=== PATIENT | female | born 1980 | race African-American/Black ===

== ENCOUNTER 2017-01-18 08:03 | Observation (INO) ==
--- NOTE | 2017-01-18 09:13 | Emergency Department Note ---
Arrival - Arrival Chief Complaint: Shortness of Breath Stated Complaint: can't breath,trach fell out ED Nursing Triage Note: Patient states that sghe was cleaning her trach and fell asleep. States thqat she was unable to get the inner cannula back in. Staes that she is a little short of breath. Mode of Arrival: Wheelchair Limitations: No Limitations Source: Patient, RN Notes Reviewed - History of Present Illness HPI Narrative: Patient is a 36-year-old black female who presents to the emergency department today due to inability to insert her inner cannula of her trach. Patient was seen in the emergency department by and underwent endoscopy and was found to have tracheitis. Patient has had a cough and some stridor. Onset (ago): day(s) (1) Consistency: constant Severity: mild, moderate Date of Last Menstrual Period: 01/18/17 Allergies/Adverse Reactions: Allergies Allergy/AdvReac Type Severity Reaction Status Date / Time Penicillins Allergy RASH Verified 09/17/15 21:05 Home Medications: Home Medications Medication Instructions Recorded Confirmed Type Ibuprofen 1 tablet PO Q8H PRN 09/20/15 10/08/16 History Ascorbic Acid Tab [Vitamin C Tab] 500 mg PO DAILY 02/23/16 10/08/16 History Echinacea Purpurea Extract 125 mg PO DAILY 02/23/16 10/08/16 History [Echinacea] Ferrous Sulfate Tab [Feosol 325 mg PO BID 02/23/16 10/08/16 History Original Tab] dilTIAZem HCl [Cartia XT] 120 mg PO BID 02/23/16 10/08/16 History Cyclobenzaprine [Flexeril] 10 mg PO TID PRN 03/17/16 10/08/16 History Triamterene/Hydrochlorothiazid 1 each PO DAILY 04/29/16 10/08/16 History [Triamterene-Hctz 37.5-25 mg Tb] predniSONE TAB [PredniSONE] 20 mg PO DAILY #30 tablet 05/14/16 10/08/16 Rx Levofloxacin Tab [Levaquin Tab] 500 mg PO DAILY #10 tablet 08/29/16 10/08/16 Rx Bisacodyl Tab [Dulcolax Tab] 10 mg PO DAILY #30 tablet 09/10/16 10/08/16 Rx Dicyclomine Cap/Tab [Bentyl 10 mg PO TID #30 capsule 09/10/16 10/08/16 Rx Cap/Tab] HYDROcodone/ACETAMIN 5-325 [[place] 1 tablet PO Q6H PRN #12 tablet 10/08/16 Rx 5-325] Review of System - Review of System 12 point system: reviewed and no additional remarkable complaints except as stated Medical,Surgical,& Family Hx - Medical History Cardio: History of: Hypertension HEENT: History of: HEENT Problems (Trach) Rheumatology: History of;: Rheumatological Problems (Prosper's) No history of;: Psoriasis, Sjogrens, Systemic Lupus Erythematosus Respiratory: History of: Bronchitis, Intubation, Respiratory Problems (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) Genitourinary: History of: Kidney Stones Gastrointestinal: History of: GERD Musculoskeletal: History of: Herniated Disk Hematology: History of: Blood Disorders (Eduardo's granuloma) No history of: Blood Transfusion Reaction Other: History of: Miscellaneous Medical Problems (morbid obesity) No history of: Anesthesia Reactions, Anaphylaxis, Cancer, Eczema, HIV, Malignant Hyperthermia, MRSA, Vancomycin-Resistant Enterococci, Skin Problems - Surgical History Cardiac Surgeries: Patient Denies: Cardiac Catheterization Thoracic Surgeries: Patient denies;: Kidney (Renal Surgery), Lithotripsy, Nephrectomy, Organ Transplant, Lobectomy Neurologic Surgeries: Patient denies: Neurologic Surgery HEENT Surgeries: Patient denies: Eye Surgery, Thyroid Surgery, Tonsilectomy & Adenoidectomy Reproductive Surgeries: Surgical HX of;: Tubal Ligation Patient denies;: Cystoscopy, Genitourinary Surgery - Family History Family History: Reports;: Family Diabetes (Mom), Family Heart Disease (Mom) Denies;: Family Anesthesia Reaction, Family Cancer, Family Hypertension, Family Psychiatric Problems, Family Stroke - Social History Smoking Status: Former smoker Exam Vital Signs: Vital Signs Temperature 98.2 F 01/18/17 08:38 Pulse Rate 133 H 01/18/17 08:38 Respiratory Rate 22 01/18/17 08:38 Blood Pressure 150/96 01/18/17 08:38 O2 Sat by Pulse Oximetry 100 01/18/17 08:38 GENERAL: This is a well-nourished well-developed obese black female in no apparent distress. VITAL SIGNS: Reviewed HEENT: Head is atraumatic and normocephalic. Pupils are equal round react to light. Extraocular movements are intact. Oropharynx is benign with moist mucous membranes. NECK: Neck is soft and supple without tenderness. There are no masses. There is no lymphadenopathy. Tracheostomy is present in the midline anteriorly. LUNGS: Minimal amount of stridor is present without retractions. Chest rises symmetrically. There is no chest wall tenderness. CV: Heart is regular rate and rhythm without murmurs rubs or gallops. ABDOMEN: Abdomen is soft, nontender to palpation. There are no abdominal abnormal masses palpated. There is no organomegaly. Bowel sounds are present and active. SKIN: Skin is warm and dry. No rash. EXTREMITIES: Patient has full range of motion without tenderness. There is no pedal edema. NEUROLOGIC: Awake alert and oriented 4. Cranial nerves II through XII are grossly intact. Motor is 5 over 5 in all extremities bilaterally. Course - Consultations Consultation #1: Discussed with hospitalist. Patient will be admitted to their service. Time: 09:14 Disposition Clinical Impression: Tracheitis, Wegeners granulomatosis Case discussed with: patient Disposition: Still a Patient Condition: Stable
[2017-01-18] MEDS ORDERED: BUDESONIDE 0.25 MG/2 ML NEB RESP TX STA (09:32)
--- NOTE | 2017-01-18 09:51 | Hospitalist History & Physical ---
Assessment and Plan - Time spent with patient Time spent with patient: Greater than 30 minutes (1) Shortness of breath Status: Acute Assessment and plan: Admit, Start on breathing treatments. Discuss with Dr Ambrose for further recommendations. Current Visit: No (2) Tracheitis Status: Acute Assessment and plan: Dr Ramso noted with endoscopy performed in the ED, with inner cannula replacement insertion completed. Patient's breathing has improved, no stridor noted. Will continue to monitor. Current Visit: Yes (3) Wegeners granulomatosis Status: Acute Assessment and plan: Will continue to monitor. Will reconcile home medications. Current Visit: Yes History of Present Illness Chief complaint: shortness of breath, trach cannula dislodged, stridor History of present illness: Ms. Burton is a 36 year old black female presented to ED for c/o removed inner cannula of Trach to clean and fell asleep prior to re-inserting inner cannula, woke up short of breath and unable to re-insert inner cannula. PMHx: hypertension, Trach (3 years ago at [facility]), Prosper's granuloma syndrome), subglottic stenosis. She reports coughing and short of breath and inability to replace inner cannula and was unable to properly self suctioning. Once in the ED, patient was noted coughing and stridor present. Dr Ramos was consulted and he performed endoscopy and noted to have tracheitis and inner cannula was replaced. After discussion with Dr Chavira in ED and Dr Ambrose Hospitalist Services, patient will be admitted for further evaluation and treatment. Home medications to review and reconciliation to follow. Home Medications Medication Instructions Recorded Confirmed Type Ibuprofen 1 tablet PO Q8H PRN 09/20/15 10/08/16 History Ascorbic Acid Tab [Vitamin C Tab] 500 mg PO DAILY 02/23/16 10/08/16 History Echinacea Purpurea Extract 125 mg PO DAILY 02/23/16 10/08/16 History [Echinacea] Ferrous Sulfate Tab [Feosol 325 mg PO BID 02/23/16 10/08/16 History Original Tab] dilTIAZem HCl [Cartia XT] 120 mg PO BID 02/23/16 10/08/16 History Cyclobenzaprine [Flexeril] 10 mg PO TID PRN 03/17/16 10/08/16 History Triamterene/Hydrochlorothiazid 1 each PO DAILY 04/29/16 10/08/16 History [Triamterene-Hctz 37.5-25 mg Tb] predniSONE TAB [PredniSONE] 20 mg PO DAILY #30 tablet 05/14/16 10/08/16 Rx Levofloxacin Tab [Levaquin Tab] 500 mg PO DAILY #10 tablet 08/29/16 10/08/16 Rx Bisacodyl Tab [Dulcolax Tab] 10 mg PO DAILY #30 tablet 09/10/16 10/08/16 Rx Dicyclomine Cap/Tab [Bentyl 10 mg PO TID #30 capsule 09/10/16 10/08/16 Rx Cap/Tab] HYDROcodone/ACETAMIN 5-325 [[place] 1 tablet PO Q6H PRN #12 tablet 10/08/16 Rx 5-325] Allergies Allergy/AdvReac Type Severity Reaction Status Date / Time Penicillins Allergy RASH Verified 09/17/15 21:05 Medical,Surgical,& Family Hx - Medical History Cardio: History of: Hypertension HEENT: History of: HEENT Problems (Trach) Rheumatology: History of;: Rheumatological Problems (Prosper's) No history of;: Psoriasis, Sjogrens, Systemic Lupus Erythematosus Respiratory: History of: Bronchitis, Intubation, Respiratory Problems (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) Genitourinary: History of: Kidney Stones Gastrointestinal: History of: GERD Musculoskeletal: History of: Herniated Disk Hematology: History of: Blood Disorders (Eduardo's granuloma) No history of: Blood Transfusion Reaction Other: History of: Miscellaneous Medical Problems (morbid obesity) No history of: Anesthesia Reactions, Anaphylaxis, Cancer, Eczema, HIV, Malignant Hyperthermia, MRSA, Vancomycin-Resistant Enterococci, Skin Problems - Surgical History Cardiac Surgeries: Patient Denies: Cardiac Catheterization Thoracic Surgeries: Patient denies;: Kidney (Renal Surgery), Lithotripsy, Nephrectomy, Organ Transplant, Lobectomy Neurologic Surgeries: Patient denies: Neurologic Surgery HEENT Surgeries: Patient denies: Eye Surgery, Thyroid Surgery, Tonsilectomy & Adenoidectomy Reproductive Surgeries: Surgical HX of;: Tubal Ligation Patient denies;: Cystoscopy, Genitourinary Surgery - Family History Family History: Reports;: Family Diabetes (Mom), Family Heart Disease (Mom) Denies;: Family Anesthesia Reaction, Family Cancer, Family Hypertension, Family Psychiatric Problems, Family Stroke - Social History Smoking Status: Former smoker Frequency of Alcohol Use: None Type of Drug Use: None Marital Status: Single Lives With:: Children Functional capacity: independent ambulation Review of systems: ROS completed and pertinent positives and negatives in HPI. Exam - Constitutional Vitals: Period Temp Pulse Resp BP Sys/Lemons Pulse Ox Last 24 Hr 98.2 F-98.2 F 126-133 20-22 145-150/94-96 99-100 General appearance: over weight - Head Head exam: Present: normal inspection - Eye Eye exam: Present: EOMI Pupils: Present: ЕЛЕНА - Neck Neck exam: Present: other (Trach intact with inner cannula intact (3year hx of trach place at [facility])) - Cardiovascular Cardiovascular exam: Present: regular rate and rhythm - Extremities Exam Extremities exam: Present: full ROM, edema (left 1+ pedal edema; trace right pedal ) - Neurological Exam Neurological exam: Present: alert, oriented X3, CN II-XII intact - Psychiatric Psychiatric exam: Present: normal affect, normal mood, anxious (constantly suctioning her trach, Discussed with Dr Chavira, order breathing treatment ) - Skin Skin exam: Present: normal color, warm, dry Results - Labs Lab Results: I have reviewed the past 24 hour labs
[2017-01-18] MEDS ORDERED: ONDANSETRON 4 MG/2 ML VIAL IV PRN (10:00)
[2017-01-18] MEDS ORDERED: ACETAMINOPHEN 325 MG TABLET PO PRN (10:00)
[2017-01-18] MEDS ORDERED: CYCLOBENZAPRINE 10 MG TABLET PO PRN (10:49)
[2017-01-18] MEDS: methylPREDNISolone SOD SUC 40 MG/1 ML VIAL IV SCH ×2 (11:40→18:18)
[2017-01-18] MEDS: LEVOFLOXACIN INJ 500 MG in PREMIX 1 EACH IV SCH (11:41)
[2017-01-18] MEDS: SODIUM CHLORIDE 0.9% 1,000 ML IV SCH (11:41)
[2017-01-18] MEDS: DICYCLOMINE 10 MG CAPSULE PO SCH ×2 (16:18→21:34)
[2017-01-18] MEDS: BUDESONIDE 0.25 MG/2 ML NEB RESP TX SCH (19:38)
[2017-01-18] MEDS: DILTIAZEM CD 120 MG CAPSULE PO SCH (21:34)
[2017-01-18] MEDS: ALBUTEROL 2.5 MG/3 ML NEB RESP TX SCH (21:38)
[2017-01-19] MEDS: SODIUM CHLORIDE 0.9% 1,000 ML IV SCH ×3 (00:41→17:51)
[2017-01-19] MEDS: methylPREDNISolone SOD SUC 40 MG/1 ML VIAL IV SCH ×2 (03:10→10:20)
[2017-01-19 05:10] LABS: Basophils % 0.1 % (0.0-0.8); Hemoglobin 10.4 GM/DL (12.0-16.0); Immature Granulocytes % 1.1 %; Immature Granulocytes Absolute 0.17 #; Lymphocytes # 0.6 10*3/uL (1.4-4.0); Lymphocytes % 3.8 % (21.3-54.2); Mean Corpuscular HGB Conc 30.6 GM/DL (32-36); Mean Corpuscular Hemoglobin 25 PG (27-34); Mean Corpuscular Volume 82.5 FL (87-102); Mean Platelet Volume 9.7 FL (9.6-12.0); Monocytes # 0.4 10*3/uL (0.11-0.8); Monocytes % 2.3 % (1.7-12.7); Neutrophils # 14.7 10*3/uL (1.4-7.4); Neutrophils % 92.7 % (38.7-73.9); Platelet Count 340 T/CUMM (130-400); Red Blood Count 4.12 MC/CUMM (3.8-5.5); Red Cell Distribution Width 15.6 % (9.3-17.3); White Blood Count 15.8 T/CUMM (4-12)
[2017-01-19 05:47] LABS: Lymphocytes 3 % (20-55); Platelet Estimate Normal; Segmented Neutrophils 96 % (50-85); Total Cells Counted 100
[2017-01-19 05:56] LABS: Calcium 8.9 MG/DL (8.5-10.1); Osmolality,Calculated 275.7 MOS/KG (273-304); Potassium 4.3 MMOL/L (3.5-5.1)
[2017-01-19] MEDS: BUDESONIDE 0.25 MG/2 ML NEB RESP TX SCH (07:27)
[2017-01-19] MEDS: ALBUTEROL 2.5 MG/3 ML NEB RESP TX SCH ×2 (07:29→14:40)
[2017-01-19] MEDS: DICYCLOMINE 10 MG CAPSULE PO SCH ×2 (08:27→15:07)
[2017-01-19] MEDS: DILTIAZEM CD 120 MG CAPSULE PO SCH (08:27)
[2017-01-19] MEDS: LEVOFLOXACIN INJ 500 MG in PREMIX 1 EACH IV SCH (10:21)
--- NOTE | 2017-01-19 15:31 | Discharge Summary ---
Hospital Course - Hospital Course Hospital Course: The patient was admitted to the hospital with tracheitis and difficulty breathing. Dr. Ramos saw her in the emergency room and was able to replace her tracheostomy. He did endoscopy at that time which revealed inflammation in the trachea. The patient was given IV steroids and IV antibiotic during hospital stay. She has less secretions now and is ready for discharge home on oral antibiotic and oral steroids. On the date of discharge, chest is clear with minimal upper airway congestion. The patient was screened for tobacco use and is a non-smoker. The patient was given 4 minutes tobacco avoidance education. 32 minutes discharge time was required for [id number] evaluation, coordination of care with case planner and charge nurse as well as education of patient and document preparation. - Time spent with patient Time with patient DS: Greater than 30 minutes Diagnosis - Discharge Diagnosis (1) Acute tracheitis Status: Acute (2) Wegeners granulomatosis Status: Chronic (3) Respiratory distress Status: Resolved Discharge Plan - Discharge Data Disposition: Disch To Home/Self Care Condition at Discharge: Stable Discharge Diet: advance to your usual diet Activity: resume usual activities as tolerated - Discharge Medications New Ciprofloxacin Tab [Cipro Tab] 500 mg PO BID #14 tablet Continue Ibuprofen 1 tablet PO Q8H PRN PRN Reason: Pain dilTIAZem HCl [Cartia XT] 120 mg PO BID Ferrous Sulfate Tab [Feosol Original Tab] 325 mg PO BID Ascorbic Acid Tab [Vitamin C Tab] 500 mg PO DAILY Cyclobenzaprine [Flexeril] 10 mg PO TID Triamterene/Hydrochlorothiazid [Triamterene-Hctz 37.5-25 mg Tb] 1 each PO DAILY predniSONE TAB [PredniSONE] 20 mg PO DAILY #30 tablet Dicyclomine Cap/Tab [Bentyl Cap/Tab] 10 mg PO TID #30 capsule Bisacodyl Tab [Dulcolax Tab] 10 mg PO DAILY PRN PRN Reason: Constipation - Follow Up or Referral - Forms/Instructions Exam - Constitutional Vitals: Period Temp Pulse Resp BP Sys/Lemons Pulse Ox Last 24 Hr 96.3 F-98.0 F 76-126 18-22 141-158/86-109 97-100 Discharge Results Labs on day of discharge: Labs from last 24 hours 01/19/17 01/19/17 04:39 04:39 WBC 15.8 H RBC 4.12 Hgb 10.4 L Hct 34.0 L MCV 82.5 L MCH 25 L MCHC 30.6 L RDW 15.6 Plt Count 340 MPV 9.7 Neut % (Auto) 92.7 H Lymph % (Auto) 3.8 L [place] % (Auto) 2.3 Eos % (Auto) 0.0 Baso % (Auto) 0.1 Neut # (Auto) 14.7 H Lymph # (Auto) 0.6 L [place] # (Auto) 0.4 Eos # (Auto) 0.0 Baso # (Auto) 0.0 Total Counted 100 Immature Gran % 1.1 Nucleated RBC % 0.0 Immature Gran # 0.17 Segmented Neutrophils 96 H Lymphocytes 3 L Monocytes 1 L Nucleated RBCs # 0.00 Platelet Estimate Normal Immature Plt Fraction 0.0 Sodium 138 Potassium 4.3 Chloride 101 Carbon Dioxide 30 Anion Gap 11.3 BUN 13 Creatinine 0.80 GFR Calculation 153 BUN/Creatinine Ratio 16.00 Glucose 110 H Calculated Osmolality 275.7 Calcium 8.9 DS: Provider Date of admission: 01/18/17 09:47 Primary care physician: . No PCP Attending physician on admission: Dixon Ambrose MD Consults: 01/18/17 16:56 Consult to Pastoral Services [CONS] Routine Comment: Pastoral Screen: Request Change Lead Visit Pastoral Screen Source of Request: Patient Discharging clinician: Dixon Ambrose MD
[2017-01-19 16:25] VITALS: BP 145/87
== END 2017-01-19 17:55 | disposition home or self-care (01) ==
LOC: N.ED 08:03 → N.EDINP 08:03 → N.3E 10:43
PROVIDERS: ADMIT Internal Medicine; ATTEND Internal Medicine

== ENCOUNTER 2017-04-19 08:07 | Inpatient (IN) ==
[2017-04-19] MEDS ORDERED: methylPREDNISolone SOD SUC 125 MG/2 ML VIAL IV STA (08:15)
[2017-04-19] MEDS ORDERED: hydrALAZINE 20 MG/1 ML VIAL IV STA (08:15)
[2017-04-19] MEDS ORDERED: ALBUTEROL 2.5 MG/3 ML NEB RESP TX SCH (08:30)
[2017-04-19] MEDS ORDERED: methylPREDNISolone SOD SUC 125 MG/2 ML VIAL ONE (08:40)
[2017-04-19] MEDS ORDERED: hydrALAZINE 20 MG/1 ML VIAL ONE (08:40)
[2017-04-19 08:59] LABS: ABG Base Excess 0.7 MMOL/L (-2.5-2.5); ABG HCO3 25.1 MMOL/L (20-26); ABG Oxygen Saturation 99.8 % (95-100); ABG PCO2 41.2 MM HG (35-48); ABG TCO2 23.2 MMOL/L (23-27)
[2017-04-19 09:12] LABS: Basophils % 0.2 % (0.0-0.8); Eosinophils % 0.2 % (0.00-10.9); Hematocrit 33.1 VOL% (35.7-47.0); Hemoglobin 9.9 GM/DL (12.0-16.0); Immature Granulocytes % 0.7 %; Immature Granulocytes Absolute 0.13 #; Lymphocytes # 1.6 10*3/uL (1.4-4.0); Lymphocytes % 8.7 % (21.3-54.2); Mean Corpuscular HGB Conc 29.9 GM/DL (32-36); Mean Corpuscular Hemoglobin 23 PG (27-34); Mean Corpuscular Volume 76.4 FL (87-102); Mean Platelet Volume 9.8 FL (9.6-12.0); Monocytes # 1.1 10*3/uL (0.11-0.8); NRBC # 0.04 10*3/uL; Neutrophils # 15.1 10*3/uL (1.4-7.4); Neutrophils % 84.2 % (38.7-73.9); Platelet Count 348 T/CUMM (130-400); Red Blood Count 4.33 MC/CUMM (3.8-5.5); Red Cell Distribution Width 17.6 % (9.3-17.3); White Blood Count 17.9 T/CUMM (4-12)
[2017-04-19 09:54] LABS: Alanine Aminotransferase 29 U/L (13-56); Albumin 3.2 G/DL (3.4-5.0); Alkaline Phosphatase 109 U/L (45-117); Aspartate Amino Transferase 14 U/L (0-37); Bilirubin,Total < 0.39 MG/DL (0.2-1.0); Blood Urea Nitrogen 11 MG/DL (7-18); Calcium 9.2 MG/DL (8.5-10.1); Glucose 133 MG/DL (74-106); Osmolality,Calculated 277.5 MOS/KG (273-304); Potassium 3.4 MMOL/L (3.5-5.1); Sodium 139 MMOL/L (136-145); Total Protein 7.8 G/DL (6.4-8.3)
[2017-04-19] MEDS ORDERED: methylPREDNISolone SOD SUC 40 MG/1 ML VIAL IV SCH (12:00)
[2017-04-19] MEDS ORDERED: ALBUTEROL/IPRATROPIUM 3 ML NEB RESP TX SCH (13:00)
[2017-04-19] MEDS ORDERED: POTASSIUM CHLORIDE 20 MEQ TABLET PO ONE (13:30)
[2017-04-19] MEDS ORDERED: ONDANSETRON 4 MG/2 ML VIAL IV PRN (13:50)
[2017-04-19] MEDS ORDERED: SODIUM CHLORIDE 0.9% 3,950 ML IV ONE (13:50)
[2017-04-19] MEDS: SODIUM CHLORIDE 0.9% 1,000 ML IV SCH (16:02)
[2017-04-19] MEDS: ENOXAPARIN 40 MG/0.4 ML SYRINGE SUBCUT SCH (17:03)
[2017-04-19] MEDS: CYCLOBENZAPRINE 10 MG TABLET PO SCH ×2 (17:56→22:58)
[2017-04-19] MEDS: CEFEPIME 1,000 MG in SODIUM CHLORIDE 0.9% 50 ML IV SCH (18:22)
[2017-04-19 19:19] LABS: Apearance,Urine CLEAR (Clear); Bacteria,Urine Occasional /HPF (Few); Bilirubin,Urine Negative (Negative); Blood, Urine Moderate mg/dL (Negative); Glucose,Urine (UA) Negative (Negative); Ketones,Urine Negative (Negative); Mucus,Urine Occasional /LPF (Occasional); Nitrite,Urine Negative (Negative); Protein,Urine 30 MG/DL; RBC,Urine 8 /HPF (0-4); Squamous Epithelial Cell,Urine Occasional /HPF (0-10); Urine Color Yellow (Yellow); Urine Specific Gravity > 1.060 (1.001-1.035); Urine Urobilinogen < 2.0 EU/DL (0.2-1.0); WBC,Urine 1 /HPF (0-6)
[2017-04-19] MEDS: BUDESONIDE 0.5 MG/2 ML NEB RESP TX SCH (20:02)
[2017-04-19] MEDS: SODIUM CHLORIDE 0.9% 500 ML IV ONE (22:00)
[2017-04-19] MEDS: methylPREDNISolone SOD SUC 40 MG/1 ML VIAL IV SCH (22:56)
[2017-04-19] MEDS: DILTIAZEM CD 120 MG CAPSULE PO SCH (22:57)
[2017-04-19] MEDS: VANCOMYCIN INJ 2,000 MG in SODIUM CHLORIDE 0.9% 500 ML IV SCH (22:58)
[2017-04-20] MEDS: CEFEPIME 1,000 MG in SODIUM CHLORIDE 0.9% 50 ML IV SCH ×2 (03:00→16:02)
[2017-04-20] MEDS: SODIUM CHLORIDE 0.9% 500 ML IV ONE (04:36)
[2017-04-20] MEDS: SODIUM CHLORIDE 0.9% 1,000 ML IV SCH ×3 (04:48→08:38)
[2017-04-20 05:03] LABS: Basophils % 0.1 % (0.0-0.8); Hematocrit 30.7 VOL% (35.7-47.0); Hemoglobin 9.2 GM/DL (12.0-16.0); Immature Granulocytes % 0.9 %; Immature Granulocytes Absolute 0.12 #; Lymphocytes # 0.5 10*3/uL (1.4-4.0); Lymphocytes % 3.9 % (21.3-54.2); Mean Corpuscular Hemoglobin 23 PG (27-34); Mean Corpuscular Volume 76.8 FL (87-102); Mean Platelet Volume 10.6 FL (9.6-12.0); Monocytes # 0.2 10*3/uL (0.11-0.8); Monocytes % 1.7 % (1.7-12.7); NRBC # 0.02 10*3/uL; Neutrophils # 11.9 10*3/uL (1.4-7.4); Neutrophils % 93.4 % (38.7-73.9); Platelet Count 327 T/CUMM (130-400); White Blood Count 12.8 T/CUMM (4-12)
[2017-04-20 05:24] LABS: Giant Platelets Few; Hypochromasia 1+; Lymphocytes 3 % (20-55); Ovalocytes Slight; Platelet Estimate Adequate; Segmented Neutrophils 95 % (50-85); Total Cells Counted 100
[2017-04-20 05:32] LABS: Bilirubin,Total 0.5 MG/DL (0.2-1.0); Osmolality,Calculated 276.5 MOS/KG (273-304); Potassium 4.2 MMOL/L (3.5-5.1); Total Protein 7.3 G/DL (6.4-8.3)
[2017-04-20] MEDS: VANCOMYCIN INJ 2,000 MG in SODIUM CHLORIDE 0.9% 500 ML IV SCH ×2 (05:44→14:07)
[2017-04-20] MEDS: BUDESONIDE 0.5 MG/2 ML NEB RESP TX SCH ×2 (07:51→19:32)
[2017-04-20] MEDS: DILTIAZEM CD 120 MG CAPSULE PO SCH ×2 (08:38→20:25)
[2017-04-20] MEDS: MONTELUKAST 10 MG TABLET PO SCH (08:38)
[2017-04-20] MEDS: PANTOPRAZOLE 40 MG TABLET PO SCH (08:39)
[2017-04-20] MEDS: methylPREDNISolone SOD SUC 40 MG/1 ML VIAL IV SCH ×2 (08:39→20:25)
[2017-04-20] MEDS: CYCLOBENZAPRINE 10 MG TABLET PO SCH ×3 (08:39→20:25)
[2017-04-20] MEDS: ACETAMINOPHEN 325 MG TABLET PO PRN ×2 (09:57→18:25)
[2017-04-20] MEDS ORDERED: FUROSEMIDE 20 MG/2 ML VIAL IV ONE (13:20)
[2017-04-20] MEDS: ENOXAPARIN 40 MG/0.4 ML SYRINGE SUBCUT SCH (14:07)
[2017-04-21] MEDS: VANCOMYCIN INJ 2,000 MG in SODIUM CHLORIDE 0.9% 500 ML IV SCH ×3 (00:21→17:06)
[2017-04-21] MEDS: CEFEPIME 1,000 MG in SODIUM CHLORIDE 0.9% 50 ML IV SCH ×2 (03:28→16:08)
[2017-04-21] MEDS: BUDESONIDE 0.5 MG/2 ML NEB RESP TX SCH ×2 (08:21→20:02)
[2017-04-21] MEDS: MONTELUKAST 10 MG TABLET PO SCH (09:24)
[2017-04-21] MEDS: PANTOPRAZOLE 40 MG TABLET PO SCH (09:24)
[2017-04-21] MEDS: CYCLOBENZAPRINE 10 MG TABLET PO SCH ×3 (09:24→20:31)
[2017-04-21] MEDS: DILTIAZEM CD 120 MG CAPSULE PO SCH ×2 (09:24→20:31)
[2017-04-21] MEDS: methylPREDNISolone SOD SUC 40 MG/1 ML VIAL IV SCH ×2 (09:25→20:31)
[2017-04-21] MEDS: CARVEDILOL 6.25 MG TABLET PO SCH ×2 (11:16→20:32)
[2017-04-21] MEDS: ENOXAPARIN 40 MG/0.4 ML SYRINGE SUBCUT SCH (15:18)
[2017-04-21] MEDS ORDERED: ALBUTEROL 2.5 MG/3 ML NEB RESP TX PRN (15:19)
[2017-04-22] MEDS: VANCOMYCIN INJ 2,000 MG in SODIUM CHLORIDE 0.9% 500 ML IV SCH ×3 (00:13→17:46)
[2017-04-22] MEDS: CEFEPIME 1,000 MG in SODIUM CHLORIDE 0.9% 50 ML IV SCH ×2 (03:33→16:14)
[2017-04-22] MEDS: BUDESONIDE 0.5 MG/2 ML NEB RESP TX SCH ×2 (07:52→19:17)
[2017-04-22] MEDS: methylPREDNISolone SOD SUC 40 MG/1 ML VIAL IV SCH (08:34)
[2017-04-22] MEDS: CYCLOBENZAPRINE 10 MG TABLET PO SCH ×3 (08:35→20:55)
[2017-04-22] MEDS: MONTELUKAST 10 MG TABLET PO SCH (08:35)
[2017-04-22] MEDS: DILTIAZEM CD 120 MG CAPSULE PO SCH ×2 (08:35→20:55)
[2017-04-22] MEDS: CARVEDILOL 6.25 MG TABLET PO SCH ×2 (08:35→20:55)
[2017-04-22] MEDS: PANTOPRAZOLE 40 MG TABLET PO SCH (08:35)
[2017-04-22] MEDS ORDERED: FUROSEMIDE 40 MG/4 ML VIAL IV ONE (10:44)
[2017-04-22] MEDS: POTASSIUM CHLORIDE 20 MEQ TABLET PO SCH (11:43)
[2017-04-22] MEDS: ENOXAPARIN 40 MG/0.4 ML SYRINGE SUBCUT SCH (14:51)
[2017-04-23] MEDS: VANCOMYCIN INJ 2,000 MG in SODIUM CHLORIDE 0.9% 500 ML IV SCH ×3 (00:40→16:52)
[2017-04-23] MEDS: CEFEPIME 1,000 MG in SODIUM CHLORIDE 0.9% 50 ML IV SCH ×2 (03:32→15:15)
[2017-04-23] MEDS: BUDESONIDE 0.5 MG/2 ML NEB RESP TX SCH ×2 (07:10→20:50)
[2017-04-23 08:01] LABS: Eosinophils % 0.2 % (0.00-10.9); Hematocrit 31.5 VOL% (35.7-47.0); Hemoglobin 9.2 GM/DL (12.0-16.0); Immature Granulocytes % 0.7 %; Immature Granulocytes Absolute 0.09 #; Lymphocytes # 0.8 10*3/uL (1.4-4.0); Lymphocytes % 6.9 % (21.3-54.2); Mean Corpuscular HGB Conc 29.2 GM/DL (32-36); Mean Corpuscular Hemoglobin 23 PG (27-34); Mean Platelet Volume 10.8 FL (9.6-12.0); Monocytes # 1.1 10*3/uL (0.11-0.8); Monocytes % 9.2 % (1.7-12.7); Neutrophils # 10.1 10*3/uL (1.4-7.4); Platelet Count 321 T/CUMM (130-400); Red Blood Count 4.04 MC/CUMM (3.8-5.5); Red Cell Distribution Width 17.4 % (9.3-17.3); White Blood Count 12.1 T/CUMM (4-12)
[2017-04-23 08:42] LABS: Calcium 8.7 MG/DL (8.5-10.1); Magnesium 2.3 MG/DL (1.8-2.4); Osmolality,Calculated 280.4 MOS/KG (273-304); Potassium 4.2 MMOL/L (3.5-5.1)
[2017-04-23] MEDS: DILTIAZEM CD 120 MG CAPSULE PO SCH ×2 (08:47→22:00)
[2017-04-23] MEDS: POTASSIUM CHLORIDE 20 MEQ TABLET PO SCH (08:48)
[2017-04-23] MEDS: predniSONE 20 MG TABLET PO SCH (08:48)
[2017-04-23] MEDS: CYCLOBENZAPRINE 10 MG TABLET PO SCH ×3 (08:48→22:00)
[2017-04-23] MEDS: PANTOPRAZOLE 40 MG TABLET PO SCH (08:48)
[2017-04-23] MEDS: CARVEDILOL 6.25 MG TABLET PO SCH ×2 (08:48→22:00)
[2017-04-23] MEDS: MONTELUKAST 10 MG TABLET PO SCH (08:49)
[2017-04-23] MEDS: ENOXAPARIN 40 MG/0.4 ML SYRINGE SUBCUT SCH (15:15)
[2017-04-23] MEDS ORDERED: FUROSEMIDE 40 MG/4 ML VIAL IV ONE (17:42)
[2017-04-24] MEDS: VANCOMYCIN INJ 2,000 MG in SODIUM CHLORIDE 0.9% 500 ML IV SCH ×3 (02:03→17:24)
[2017-04-24] MEDS: CEFEPIME 1,000 MG in SODIUM CHLORIDE 0.9% 50 ML IV SCH ×2 (05:05→16:25)
[2017-04-24] MEDS: BUDESONIDE 0.5 MG/2 ML NEB RESP TX SCH ×2 (07:15→20:45)
[2017-04-24 07:17] LABS: Basophils % 0.1 % (0.0-0.8); Eosinophils # 0.1 10*3/uL (0.0-0.87); Eosinophils % 0.9 % (0.00-10.9); Hematocrit 31.1 VOL% (35.7-47.0); Hemoglobin 9.2 GM/DL (12.0-16.0); Immature Granulocytes % 0.7 %; Immature Granulocytes Absolute 0.08 #; Lymphocytes # 1.3 10*3/uL (1.4-4.0); Lymphocytes % 11.3 % (21.3-54.2); Mean Corpuscular HGB Conc 29.6 GM/DL (32-36); Mean Corpuscular Hemoglobin 23 PG (27-34); Mean Corpuscular Volume 77.6 FL (87-102); Mean Platelet Volume 9.5 FL (9.6-12.0); Monocytes % 9.1 % (1.7-12.7); Neutrophils # 8.7 10*3/uL (1.4-7.4); Neutrophils % 77.9 % (38.7-73.9); Platelet Count 288 T/CUMM (130-400); Red Blood Count 4.01 MC/CUMM (3.8-5.5); Red Cell Distribution Width 17.2 % (9.3-17.3); White Blood Count 11.2 T/CUMM (4-12)
[2017-04-24 08:36] LABS: Calcium 8.5 MG/DL (8.5-10.1); Magnesium 2.4 MG/DL (1.8-2.4); Osmolality,Calculated 277.5 MOS/KG (273-304); Potassium 3.4 MMOL/L (3.5-5.1)
[2017-04-24] MEDS ORDERED: predniSONE 10 MG TABLET ONE (08:40)
[2017-04-24] MEDS: POTASSIUM CHLORIDE 20 MEQ TABLET PO SCH (08:53)
[2017-04-24] MEDS: DILTIAZEM CD 120 MG CAPSULE PO SCH ×2 (08:53→20:51)
[2017-04-24] MEDS: MONTELUKAST 10 MG TABLET PO SCH (08:53)
[2017-04-24] MEDS: CYCLOBENZAPRINE 10 MG TABLET PO SCH ×3 (08:53→20:52)
[2017-04-24] MEDS: PANTOPRAZOLE 40 MG TABLET PO SCH (08:53)
[2017-04-24] MEDS: CARVEDILOL 6.25 MG TABLET PO SCH ×2 (08:53→20:52)
[2017-04-24] MEDS: predniSONE 20 MG TABLET PO SCH (08:54)
[2017-04-24 15:35] LABS: Myeloperoxidase Antibody < 0.2 U
[2017-04-24] MEDS: ENOXAPARIN 40 MG/0.4 ML SYRINGE SUBCUT SCH (16:26)
[2017-04-25] MEDS: CEFEPIME 1,000 MG in SODIUM CHLORIDE 0.9% 50 ML IV SCH (04:17)
[2017-04-25 06:50] LABS: Basophils % 0.1 % (0.0-0.8); Eosinophils # 0.1 10*3/uL (0.0-0.87); Eosinophils % 0.8 % (0.00-10.9); Hematocrit 31.3 VOL% (35.7-47.0); Hemoglobin 9.2 GM/DL (12.0-16.0); Immature Granulocytes % 0.7 %; Immature Granulocytes Absolute 0.08 #; Lymphocytes # 1.1 10*3/uL (1.4-4.0); Lymphocytes % 10.1 % (21.3-54.2); Mean Corpuscular HGB Conc 29.4 GM/DL (32-36); Mean Corpuscular Hemoglobin 23 PG (27-34); Mean Corpuscular Volume 77.3 FL (87-102); Mean Platelet Volume 10.3 FL (9.6-12.0); Monocytes # 0.9 10*3/uL (0.11-0.8); Monocytes % 7.8 % (1.7-12.7); Neutrophils % 80.5 % (38.7-73.9); Platelet Count 313 T/CUMM (130-400); Red Blood Count 4.05 MC/CUMM (3.8-5.5); White Blood Count 11.2 T/CUMM (4-12)
[2017-04-25 07:31] LABS: Calcium 8.7 MG/DL (8.5-10.1); Magnesium 2.3 MG/DL (1.8-2.4); Osmolality,Calculated 271.8 MOS/KG (273-304); Potassium 3.7 MMOL/L (3.5-5.1)
[2017-04-25] MEDS: BUDESONIDE 0.5 MG/2 ML NEB RESP TX SCH (07:44)
[2017-04-25] MEDS: VANCOMYCIN INJ 2,000 MG in SODIUM CHLORIDE 0.9% 500 ML IV SCH ×2 (08:51)
[2017-04-25] MEDS: MONTELUKAST 10 MG TABLET PO SCH (08:51)
[2017-04-25] MEDS: PANTOPRAZOLE 40 MG TABLET PO SCH (08:51)
[2017-04-25] MEDS: CARVEDILOL 6.25 MG TABLET PO SCH (08:51)
[2017-04-25] MEDS: DILTIAZEM CD 120 MG CAPSULE PO SCH (08:51)
[2017-04-25] MEDS: predniSONE 20 MG TABLET PO SCH (08:51)
[2017-04-25] MEDS: POTASSIUM CHLORIDE 20 MEQ TABLET PO SCH (08:51)
[2017-04-25] MEDS: CYCLOBENZAPRINE 10 MG TABLET PO SCH (08:52)
[2017-04-25 12:33] VITALS: BP 138/88
== END 2017-04-25 13:35 | disposition home health service (06) | DRG 871 ==
LOC: N.ED 08:07 → SUATTDRO 10:27 → N.EDINP 10:27 → N.5E 13:35
PROVIDERS: ADMIT Internal Medicine; ATTEND Internal Medicine

== ENCOUNTER 2017-10-24 19:50 | Inpatient (IN) ==
[2017-10-24] MEDS ORDERED: FUROSEMIDE 100 MG/10 ML VIAL IV STA (20:34)
[2017-10-24] MEDS ORDERED: methylPREDNISolone SOD SUC 125 MG/2 ML VIAL IV STA (20:34)
[2017-10-24] MEDS ORDERED: ONDANSETRON 4 MG/2 ML VIAL IV STA (20:34)
[2017-10-24 20:42] LABS: Basophils % 0.1 % (0.0-0.8); Eosinophils # 0.1 10*3/uL (0.0-0.87); Eosinophils % 0.4 % (0.00-10.9); Hematocrit 33.5 VOL% (35.7-47.0); Hemoglobin 9.4 GM/DL (12.0-16.0); Immature Granulocytes % 1.1 %; Immature Granulocytes Absolute 0.16 #; Lymphocytes # 1.6 10*3/uL (1.4-4.0); Lymphocytes % 10.8 % (21.3-54.2); Mean Corpuscular HGB Conc 28.1 GM/DL (32-36); Mean Corpuscular Hemoglobin 21 PG (27-34); Mean Platelet Volume 9.1 FL (9.6-12.0); Monocytes # 1.2 10*3/uL (0.11-0.8); Monocytes % 7.6 % (1.7-12.7); NRBC # 0.04 10*3/uL; Neutrophils # 12.1 10*3/uL (1.4-7.4); Platelet Count 341 T/CUMM (130-400); Red Blood Count 4.41 MC/CUMM (3.8-5.5); Red Cell Distribution Width 18.8 % (9.3-17.3); White Blood Count 15.1 T/CUMM (4-12)
[2017-10-24 20:57] LABS: PT Patient Result 10.4 SECS
[2017-10-24] MEDS ORDERED: ALBUTEROL 2.5 MG/3 ML NEB RESP TX SCH (21:00)
[2017-10-24] MEDS ORDERED: FUROSEMIDE 40 MG/4 ML VIAL ONE (21:04)
[2017-10-24 21:11] LABS: Alanine Aminotransferase 30 U/L (13-56); Albumin 3.4 G/DL (3.4-5.0); Alkaline Phosphatase 93 U/L (45-117); Aspartate Amino Transferase 15 U/L (0-37); Bilirubin,Total < 0.39 MG/DL (0.2-1.0); Blood Urea Nitrogen 13 MG/DL (7-18); Calcium 8.6 MG/DL (8.5-10.1); Glucose 90 MG/DL (74-106); Osmolality,Calculated 278.4 MOS/KG (273-304); Potassium 3.6 MMOL/L (3.5-5.1); Sodium 140 MMOL/L (136-145); Total Protein 7.3 G/DL (6.4-8.3); Troponin I Only < 0.015 NG/ML (0.00-0.045)
[2017-10-24] MEDS ORDERED: CLINDAMYCIN INJ 600 MG in PREMIX 1 EACH IV STA (23:38)
[2017-10-25] MEDS ORDERED: ONDANSETRON 4 MG/2 ML VIAL IV PRN (01:44)
[2017-10-25] MEDS ORDERED: ALBUTEROL 2.5 MG/3 ML NEB RESP TX PRN (01:44)
[2017-10-25] MEDS: LEVOFLOXACIN INJ 500 MG in PREMIX 1 EACH IV SCH (03:30)
[2017-10-25 06:48] LABS: Basophils % 0.1 % (0.0-0.8); Hemoglobin 9.4 GM/DL (12.0-16.0); Immature Granulocytes % 0.9 %; Immature Granulocytes Absolute 0.14 #; Lymphocytes # 0.4 10*3/uL (1.4-4.0); Lymphocytes % 2.4 % (21.3-54.2); Mean Corpuscular HGB Conc 29.4 GM/DL (32-36); Mean Corpuscular Hemoglobin 22 PG (27-34); Mean Corpuscular Volume 73.4 FL (87-102); Mean Platelet Volume 9.5 FL (9.6-12.0); Monocytes # 0.2 10*3/uL (0.11-0.8); NRBC # 0.03 10*3/uL; Neutrophils # 15.1 10*3/uL (1.4-7.4); Neutrophils % 95.6 % (38.7-73.9); Platelet Count 345 T/CUMM (130-400); Red Blood Count 4.36 MC/CUMM (3.8-5.5); Red Cell Distribution Width 18.7 % (9.3-17.3); White Blood Count 15.7 T/CUMM (4-12)
[2017-10-25 07:08] LABS: Giant Platelets Few; Hypochromasia 1+; Lymphocytes 1 % (20-55); Microcytosis Slight; Ovalocytes Slight; Platelet Estimate Adequate; Segmented Neutrophils 99 % (50-85); Total Cells Counted 100
[2017-10-25] MEDS: ALBUTEROL/IPRATROPIUM 3 ML NEB RESP TX SCH ×3 (07:51→20:48)
[2017-10-25] MEDS: TRIAMTERENE/HCTZ 37.5-25 MG TABLET PO SCH (08:03)
[2017-10-25] MEDS: predniSONE 20 MG TABLET PO SCH (08:03)
[2017-10-25] MEDS: FERROUS SULFATE 325 MG TABLET PO SCH ×2 (08:03→21:45)
[2017-10-25] MEDS: POTASSIUM CHLORIDE 20 MEQ TABLET PO SCH (08:03)
[2017-10-25] MEDS: DILTIAZEM CD 240 MG CAPSULE PO SCH ×2 (08:03→21:45)
[2017-10-25 11:18] LABS: Apearance,Urine Slightly Hazy (Clear); Bilirubin,Urine Negative (Negative); Blood, Urine Large mg/dL (Negative); Glucose,Urine (UA) Negative (Negative); Ketones,Urine Negative (Negative); Nitrite,Urine Negative (Negative); Protein,Urine 30 MG/DL; RBC,Urine 1237 /HPF (0-4); Squamous Epithelial Cell,Urine Occasional /HPF (0-10); Urine Color Yellow (Yellow); Urine Specific Gravity 1.012 (1.001-1.035); Urine Urobilinogen < 2.0 EU/DL (0.2-1.0)
[2017-10-25] MEDS: DORNASE ALFA 2.5 MG/2.5 ML VIAL RESP TX SCH ×2 (11:33→21:00)
[2017-10-25] MEDS: CYCLOBENZAPRINE 10 MG TABLET PO PRN ×2 (13:15→21:45)
[2017-10-26] MEDS: ALBUTEROL/IPRATROPIUM 3 ML NEB RESP TX SCH ×4 (00:22→19:35)
[2017-10-26] MEDS: LEVOFLOXACIN INJ 500 MG in PREMIX 1 EACH IV SCH (01:28)
[2017-10-26 07:01] LABS: Basophils % 0.1 % (0.0-0.8); Eosinophils % 0.1 % (0.00-10.9); Hematocrit 31.9 VOL% (35.7-47.0); Hemoglobin 9.3 GM/DL (12.0-16.0); Immature Granulocytes % 0.8 %; Immature Granulocytes Absolute 0.12 #; Lymphocytes # 0.8 10*3/uL (1.4-4.0); Lymphocytes % 5.6 % (21.3-54.2); Mean Corpuscular HGB Conc 29.2 GM/DL (32-36); Mean Corpuscular Hemoglobin 21 PG (27-34); Mean Corpuscular Volume 73.3 FL (87-102); Mean Platelet Volume 9.5 FL (9.6-12.0); Monocytes # 1.1 10*3/uL (0.11-0.8); Monocytes % 7.3 % (1.7-12.7); NRBC # 0.05 10*3/uL; Neutrophils # 12.6 10*3/uL (1.4-7.4); Neutrophils % 86.1 % (38.7-73.9); Platelet Count 382 T/CUMM (130-400); Red Blood Count 4.35 MC/CUMM (3.8-5.5); Red Cell Distribution Width 18.6 % (9.3-17.3); White Blood Count 14.7 T/CUMM (4-12)
[2017-10-26] MEDS: DORNASE ALFA 2.5 MG/2.5 ML VIAL RESP TX SCH ×2 (07:20→19:35)
[2017-10-26 07:40] LABS: Hypochromasia 2+; Macrocytosis 1+; Platelet Estimate Adequate; Target Cells Slight
[2017-10-26 07:41] LABS: Calcium 8.9 MG/DL (8.5-10.1); Osmolality,Calculated 275.8 MOS/KG (273-304); Potassium 3.8 MMOL/L (3.5-5.1)
[2017-10-26] MEDS: FERROUS SULFATE 325 MG TABLET PO SCH ×2 (08:11→20:48)
[2017-10-26] MEDS: TRIAMTERENE/HCTZ 37.5-25 MG TABLET PO SCH (08:11)
[2017-10-26] MEDS: SULFAMETHOX/TRIMETHOPRIM 800-160 MG TABLET PO SCH (08:11)
[2017-10-26] MEDS: predniSONE 20 MG TABLET PO SCH (08:11)
[2017-10-26] MEDS: POTASSIUM CHLORIDE 20 MEQ TABLET PO SCH (08:11)
[2017-10-26] MEDS: DILTIAZEM CD 240 MG CAPSULE PO SCH ×2 (08:11→20:47)
[2017-10-27] MEDS: ALBUTEROL/IPRATROPIUM 3 ML NEB RESP TX SCH ×4 (00:10→19:00)
[2017-10-27] MEDS: LEVOFLOXACIN INJ 500 MG in PREMIX 1 EACH IV SCH (01:28)
[2017-10-27 04:18] LABS: Allen Test Positive
[2017-10-27 04:28] LABS: ABG Base Excess 6.1 MMOL/L (-2.5-2.5); ABG Oxygen Saturation 99.1 % (95-100); ABG PCO2 54.8 MM HG (35-48); ABG PH 7.381 (7.35-7.45); ABG TCO2 29.8 MMOL/L (23-27)
[2017-10-27 07:06] LABS: Calcium 9.1 MG/DL (8.5-10.1); Osmolality,Calculated 274.7 MOS/KG (273-304); Potassium 3.6 MMOL/L (3.5-5.1)
[2017-10-27 07:17] LABS: Basophils % 0.1 % (0.0-0.8); Eosinophils # 0.1 10*3/uL (0.0-0.87); Eosinophils % 0.3 % (0.00-10.9); Hematocrit 32.4 VOL% (35.7-47.0); Hemoglobin 9.5 GM/DL (12.0-16.0); Immature Granulocytes Absolute 0.14 #; Lymphocytes # 1.4 10*3/uL (1.4-4.0); Lymphocytes % 9.6 % (21.3-54.2); Mean Corpuscular HGB Conc 29.3 GM/DL (32-36); Mean Corpuscular Hemoglobin 21 PG (27-34); Mean Platelet Volume 9.9 FL (9.6-12.0); Monocytes # 1.2 10*3/uL (0.11-0.8); Monocytes % 8.2 % (1.7-12.7); NRBC # 0.03 10*3/uL; Neutrophils # 11.6 10*3/uL (1.4-7.4); Neutrophils % 80.8 % (38.7-73.9); Platelet Count 359 T/CUMM (130-400); Red Blood Count 4.44 MC/CUMM (3.8-5.5); Red Cell Distribution Width 18.7 % (9.3-17.3); White Blood Count 14.3 T/CUMM (4-12)
[2017-10-27] MEDS: DORNASE ALFA 2.5 MG/2.5 ML VIAL RESP TX SCH ×2 (07:33→19:03)
[2017-10-27] MEDS: DILTIAZEM CD 240 MG CAPSULE PO SCH ×2 (08:03→22:29)
[2017-10-27] MEDS: FERROUS SULFATE 325 MG TABLET PO SCH ×2 (08:03→22:30)
[2017-10-27] MEDS: TRIAMTERENE/HCTZ 37.5-25 MG TABLET PO SCH (08:03)
[2017-10-27] MEDS: predniSONE 20 MG TABLET PO SCH (08:03)
[2017-10-27] MEDS: POTASSIUM CHLORIDE 20 MEQ TABLET PO SCH (08:03)
[2017-10-27] MEDS: LISINOPRIL 10 MG TABLET PO SCH ×2 (08:10→22:29)
[2017-10-27] MEDS: VANCOMYCIN INJ 2,250 MG in SODIUM CHLORIDE 0.9% 500 ML IV SCH ×2 (11:49→23:04)
[2017-10-27] MEDS ORDERED: ACETYLCYSTEINE 20% 800 MG/4 ML VIAL RESP TX ONE (20:28)
[2017-10-28] MEDS: ALBUTEROL/IPRATROPIUM 3 ML NEB RESP TX SCH ×4 (00:30→19:18)
[2017-10-28] MEDS: LEVOFLOXACIN INJ 500 MG in PREMIX 1 EACH IV SCH (04:11)
[2017-10-28 06:52] LABS: Basophils % 0.1 % (0.0-0.8); Eosinophils # 0.1 10*3/uL (0.0-0.87); Eosinophils % 0.6 % (0.00-10.9); Hematocrit 32.3 VOL% (35.7-47.0); Hemoglobin 9.5 GM/DL (12.0-16.0); Immature Granulocytes % 1.2 %; Immature Granulocytes Absolute 0.15 #; Lymphocytes # 1.5 10*3/uL (1.4-4.0); Lymphocytes % 12.3 % (21.3-54.2); Mean Corpuscular HGB Conc 29.4 GM/DL (32-36); Mean Corpuscular Hemoglobin 22 PG (27-34); Mean Corpuscular Volume 73.1 FL (87-102); Mean Platelet Volume 9.6 FL (9.6-12.0); Monocytes % 7.7 % (1.7-12.7); NRBC # 0.03 10*3/uL; Neutrophils # 9.6 10*3/uL (1.4-7.4); Neutrophils % 78.1 % (38.7-73.9); Platelet Count 369 T/CUMM (130-400); Red Blood Count 4.42 MC/CUMM (3.8-5.5); Red Cell Distribution Width 18.6 % (9.3-17.3); White Blood Count 12.3 T/CUMM (4-12)
[2017-10-28] MEDS: DORNASE ALFA 2.5 MG/2.5 ML VIAL RESP TX SCH ×2 (07:10→19:18)
[2017-10-28 07:30] LABS: Calcium 8.7 MG/DL (8.5-10.1); Osmolality,Calculated 270.8 MOS/KG (273-304); Potassium 3.5 MMOL/L (3.5-5.1)
[2017-10-28] MEDS: FERROUS SULFATE 325 MG TABLET PO SCH ×2 (08:02→22:07)
[2017-10-28] MEDS: SULFAMETHOX/TRIMETHOPRIM 800-160 MG TABLET PO SCH (08:02)
[2017-10-28] MEDS: LISINOPRIL 10 MG TABLET PO SCH ×2 (08:02→22:07)
[2017-10-28] MEDS: TRIAMTERENE/HCTZ 37.5-25 MG TABLET PO SCH (08:02)
[2017-10-28] MEDS: predniSONE 20 MG TABLET PO SCH (08:02)
[2017-10-28] MEDS: POTASSIUM CHLORIDE 20 MEQ TABLET PO SCH (08:02)
[2017-10-28] MEDS: DILTIAZEM CD 240 MG CAPSULE PO SCH ×2 (08:02→22:06)
[2017-10-28] MEDS ORDERED: MAGNESIUM HYDROXIDE SUSP 30 ML UDCUP PO PRN (08:52)
[2017-10-28] MEDS: VANCOMYCIN INJ 2,250 MG in SODIUM CHLORIDE 0.9% 500 ML IV SCH ×2 (10:50→22:08)
[2017-10-28] MEDS: ACETAMINOPHEN 325 MG TABLET PO PRN (17:32)
[2017-10-29] MEDS: ALBUTEROL/IPRATROPIUM 3 ML NEB RESP TX SCH ×4 (00:38→19:38)
[2017-10-29] MEDS: VANCOMYCIN INJ 2,250 MG in SODIUM CHLORIDE 0.9% 500 ML IV SCH ×2 (01:16→14:51)
[2017-10-29] MEDS: LEVOFLOXACIN INJ 500 MG in PREMIX 1 EACH IV SCH (04:12)
[2017-10-29 07:36] LABS: Basophils % 0.1 % (0.0-0.8); Eosinophils # 0.1 10*3/uL (0.0-0.87); Eosinophils % 0.5 % (0.00-10.9); Hematocrit 32.5 VOL% (35.7-47.0); Hemoglobin 9.5 GM/DL (12.0-16.0); Immature Granulocytes % 0.9 %; Lymphocytes # 1.5 10*3/uL (1.4-4.0); Lymphocytes % 12.7 % (21.3-54.2); Mean Corpuscular HGB Conc 29.2 GM/DL (32-36); Mean Corpuscular Hemoglobin 21 PG (27-34); Mean Corpuscular Volume 73.4 FL (87-102); Mean Platelet Volume 9.5 FL (9.6-12.0); Monocytes # 0.8 10*3/uL (0.11-0.8); Monocytes % 6.8 % (1.7-12.7); Neutrophils # 9.1 10*3/uL (1.4-7.4); Platelet Count 369 T/CUMM (130-400); Red Blood Count 4.43 MC/CUMM (3.8-5.5); White Blood Count 11.6 T/CUMM (4-12)
[2017-10-29] MEDS: DORNASE ALFA 2.5 MG/2.5 ML VIAL RESP TX SCH ×2 (07:53→19:50)
[2017-10-29 08:08] LABS: Calcium 9.1 MG/DL (8.5-10.1); Osmolality,Calculated 272.7 MOS/KG (273-304); Potassium 3.4 MMOL/L (3.5-5.1)
[2017-10-29] MEDS: predniSONE 20 MG TABLET PO SCH (09:11)
[2017-10-29] MEDS: FERROUS SULFATE 325 MG TABLET PO SCH ×2 (09:11→21:24)
[2017-10-29] MEDS: DILTIAZEM CD 240 MG CAPSULE PO SCH ×2 (09:11→21:23)
[2017-10-29] MEDS: LISINOPRIL 10 MG TABLET PO SCH ×2 (09:11→21:24)
[2017-10-29] MEDS: TRIAMTERENE/HCTZ 37.5-25 MG TABLET PO SCH (09:11)
[2017-10-29] MEDS: POTASSIUM CHLORIDE 20 MEQ TABLET PO SCH (09:11)
[2017-10-29] MEDS: traZODone 50 MG TABLET PO PRN (21:43)
[2017-10-30] MEDS: ALBUTEROL/IPRATROPIUM 3 ML NEB RESP TX SCH ×4 (00:16→20:42)
[2017-10-30] MEDS: LEVOFLOXACIN INJ 500 MG in PREMIX 1 EACH IV SCH (01:17)
[2017-10-30] MEDS: DORNASE ALFA 2.5 MG/2.5 ML VIAL RESP TX SCH ×2 (07:24→20:42)
[2017-10-30] MEDS: TRIAMTERENE/HCTZ 37.5-25 MG TABLET PO SCH (08:55)
[2017-10-30] MEDS: predniSONE 20 MG TABLET PO SCH (08:55)
[2017-10-30] MEDS: SULFAMETHOX/TRIMETHOPRIM 800-160 MG TABLET PO SCH (08:55)
[2017-10-30] MEDS: DILTIAZEM CD 240 MG CAPSULE PO SCH ×2 (08:55→21:02)
[2017-10-30] MEDS: LISINOPRIL 10 MG TABLET PO SCH ×2 (08:55→21:03)
[2017-10-30] MEDS: POTASSIUM CHLORIDE 20 MEQ TABLET PO SCH (08:55)
[2017-10-30] MEDS: FERROUS SULFATE 325 MG TABLET PO SCH ×2 (08:55→21:02)
[2017-10-30 12:34] LABS: ABG HCO3 31.2 MMOL/L (20-26); ABG Oxygen Saturation 98.2 % (95-100); ABG PCO2 48.8 MM HG (35-48); ABG PH 7.424 (7.35-7.45); ABG PO2 117.9 MM HG (80-95); ABG TCO2 32.7 MMOL/L (23-27); Allen Test Positive
[2017-10-30] MEDS: VANCOMYCIN INJ 2,250 MG in SODIUM CHLORIDE 0.9% 500 ML IV SCH (14:19)
[2017-10-30] MEDS: traZODone 50 MG TABLET PO PRN (21:02)
[2017-10-31] MEDS: ALBUTEROL/IPRATROPIUM 3 ML NEB RESP TX SCH ×4 (01:40→19:49)
[2017-10-31] MEDS: LEVOFLOXACIN INJ 500 MG in PREMIX 1 EACH IV SCH (02:58)
[2017-10-31 05:32] LABS: Basophils % 0.1 % (0.0-0.8); Eosinophils # 0.1 10*3/uL (0.0-0.87); Eosinophils % 0.4 % (0.00-10.9); Hemoglobin 9.6 GM/DL (12.0-16.0); Immature Granulocytes % 0.9 %; Immature Granulocytes Absolute 0.11 #; Lymphocytes # 1.3 10*3/uL (1.4-4.0); Mean Corpuscular Hemoglobin 22 PG (27-34); Mean Corpuscular Volume 72.9 FL (87-102); Mean Platelet Volume 9.8 FL (9.6-12.0); Monocytes # 0.9 10*3/uL (0.11-0.8); Monocytes % 7.4 % (1.7-12.7); Neutrophils # 10.2 10*3/uL (1.4-7.4); Neutrophils % 81.2 % (38.7-73.9); Platelet Count 242 T/CUMM (130-400); Red Blood Count 4.39 MC/CUMM (3.8-5.5); White Blood Count 12.6 T/CUMM (4-12)
[2017-10-31 05:58] LABS: Calcium 8.9 MG/DL (8.5-10.1); Osmolality,Calculated 271.8 MOS/KG (273-304); Potassium 3.8 MMOL/L (3.5-5.1)
[2017-10-31] MEDS: DORNASE ALFA 2.5 MG/2.5 ML VIAL RESP TX SCH ×2 (07:11→19:49)
[2017-10-31] MEDS: DILTIAZEM CD 240 MG CAPSULE PO SCH ×2 (10:11→22:04)
[2017-10-31] MEDS: POTASSIUM CHLORIDE 20 MEQ TABLET PO SCH (10:11)
[2017-10-31] MEDS: FERROUS SULFATE 325 MG TABLET PO SCH ×2 (10:12→22:04)
[2017-10-31] MEDS: TRIAMTERENE/HCTZ 37.5-25 MG TABLET PO SCH (10:12)
[2017-10-31] MEDS: LISINOPRIL 10 MG TABLET PO SCH ×4 (10:12→22:05)
[2017-10-31] MEDS: predniSONE 20 MG TABLET PO SCH (10:12)
[2017-10-31] MEDS: ACETAMINOPHEN 325 MG TABLET PO PRN (10:17)
[2017-10-31 11:02] LABS: % Iron Saturation 14.1 % (18-50)
[2017-10-31 11:33] LABS: Folate 8.5 NG/ML (5.4-24.0)
[2017-10-31] MEDS: VANCOMYCIN INJ 2,250 MG in SODIUM CHLORIDE 0.9% 500 ML IV SCH ×2 (15:36→16:57)
[2017-10-31] MEDS: CARVEDILOL 3.125 MG TABLET PO SCH (18:11)
[2017-10-31] MEDS: traZODone 50 MG TABLET PO PRN (22:15)
[2017-11-01] MEDS: ALBUTEROL/IPRATROPIUM 3 ML NEB RESP TX SCH ×5 (00:41→19:20)
[2017-11-01] MEDS: LEVOFLOXACIN INJ 500 MG in PREMIX 1 EACH IV SCH (02:41)
[2017-11-01] MEDS: VANCOMYCIN INJ 2,250 MG in SODIUM CHLORIDE 0.9% 500 ML IV SCH ×2 (04:05→16:17)
[2017-11-01] MEDS: DORNASE ALFA 2.5 MG/2.5 ML VIAL RESP TX SCH ×2 (07:02→19:26)
[2017-11-01] MEDS: LISINOPRIL 10 MG TABLET PO SCH ×2 (08:57→21:29)
[2017-11-01] MEDS: DILTIAZEM CD 240 MG CAPSULE PO SCH ×2 (08:57→21:27)
[2017-11-01] MEDS: TRIAMTERENE/HCTZ 37.5-25 MG TABLET PO SCH (08:57)
[2017-11-01] MEDS: FERROUS SULFATE 325 MG TABLET PO SCH ×2 (08:58→21:26)
[2017-11-01] MEDS: predniSONE 20 MG TABLET PO SCH (08:58)
[2017-11-01] MEDS: POTASSIUM CHLORIDE 20 MEQ TABLET PO SCH (08:58)
[2017-11-01] MEDS: CARVEDILOL 3.125 MG TABLET PO SCH ×2 (08:58→16:17)
[2017-11-01] MEDS: SULFAMETHOX/TRIMETHOPRIM 800-160 MG TABLET PO SCH (08:58)
[2017-11-01] MEDS ORDERED: CYANOCOBALAMIN 1000 MCG/1 ML VIAL IM ONE (10:33)
[2017-11-01] MEDS ORDERED: TUBERCULIN SKIN TEST 0.1 ML SYRINGE INTRADERM STA (20:44)
[2017-11-01] MEDS: traZODone 50 MG TABLET PO PRN (21:26)
[2017-11-02] MEDS: ALBUTEROL/IPRATROPIUM 3 ML NEB RESP TX SCH ×5 (01:03→23:59)
[2017-11-02] MEDS: LEVOFLOXACIN INJ 500 MG in PREMIX 1 EACH IV SCH (02:46)
[2017-11-02] MEDS: VANCOMYCIN INJ 2,250 MG in SODIUM CHLORIDE 0.9% 500 ML IV SCH ×2 (04:57→18:09)
[2017-11-02] MEDS: DORNASE ALFA 2.5 MG/2.5 ML VIAL RESP TX SCH ×2 (08:07→19:36)
[2017-11-02] MEDS: LISINOPRIL 10 MG TABLET PO SCH ×2 (09:24→21:26)
[2017-11-02] MEDS: predniSONE 20 MG TABLET PO SCH (09:24)
[2017-11-02] MEDS: DILTIAZEM CD 240 MG CAPSULE PO SCH ×2 (09:24→21:25)
[2017-11-02] MEDS: FERROUS SULFATE 325 MG TABLET PO SCH ×2 (09:24→21:26)
[2017-11-02] MEDS: TRIAMTERENE/HCTZ 37.5-25 MG TABLET PO SCH (09:24)
[2017-11-02] MEDS: CARVEDILOL 3.125 MG TABLET PO SCH ×2 (09:24→18:10)
[2017-11-02] MEDS: POTASSIUM CHLORIDE 20 MEQ TABLET PO SCH (09:24)
[2017-11-02] MEDS: IBUPROFEN 600 MG TABLET PO PRN (09:26)
[2017-11-02] MEDS: ACETAMINOPHEN 325 MG TABLET PO PRN (10:49)
[2017-11-02] MEDS: CYCLOBENZAPRINE 10 MG TABLET PO PRN (10:49)
[2017-11-02] MEDS: traZODone 50 MG TABLET PO PRN (21:26)
[2017-11-03] MEDS: LEVOFLOXACIN INJ 500 MG in PREMIX 1 EACH IV SCH (02:00)
[2017-11-03] MEDS: VANCOMYCIN INJ 2,250 MG in SODIUM CHLORIDE 0.9% 500 ML IV SCH (03:40)
[2017-11-03] MEDS: ALBUTEROL/IPRATROPIUM 3 ML NEB RESP TX SCH ×3 (07:36→19:30)
[2017-11-03] MEDS: DORNASE ALFA 2.5 MG/2.5 ML VIAL RESP TX SCH ×2 (07:39→19:30)
[2017-11-03] MEDS: CARVEDILOL 3.125 MG TABLET PO SCH ×2 (08:52→16:04)
[2017-11-03] MEDS: TRIAMTERENE/HCTZ 37.5-25 MG TABLET PO SCH (08:52)
[2017-11-03] MEDS: LISINOPRIL 10 MG TABLET PO SCH ×2 (08:52→20:58)
[2017-11-03] MEDS: DILTIAZEM CD 240 MG CAPSULE PO SCH ×2 (08:52→20:59)
[2017-11-03] MEDS: predniSONE 20 MG TABLET PO SCH (08:52)
[2017-11-03] MEDS: SULFAMETHOX/TRIMETHOPRIM 800-160 MG TABLET PO SCH (08:53)
[2017-11-03] MEDS: POTASSIUM CHLORIDE 20 MEQ TABLET PO SCH (08:53)
[2017-11-03] MEDS: FERROUS SULFATE 325 MG TABLET PO SCH ×2 (08:53→20:59)
[2017-11-03 09:51] LABS: Basophils % 0.1 % (0.0-0.8); Eosinophils # 0.1 10*3/uL (0.0-0.87); Eosinophils % 0.6 % (0.00-10.9); Hematocrit 33.6 VOL% (35.7-47.0); Hemoglobin 9.5 GM/DL (12.0-16.0); Immature Granulocytes % 2.1 %; Lymphocytes # 1.6 10*3/uL (1.4-4.0); Lymphocytes % 11.2 % (21.3-54.2); Mean Corpuscular HGB Conc 28.3 GM/DL (32-36); Mean Corpuscular Hemoglobin 22 PG (27-34); Mean Corpuscular Volume 76.4 FL (87-102); Mean Platelet Volume 9.3 FL (9.6-12.0); Monocytes # 0.7 10*3/uL (0.11-0.8); Monocytes % 4.9 % (1.7-12.7); Neutrophils # 11.7 10*3/uL (1.4-7.4); Neutrophils % 81.1 % (38.7-73.9); Platelet Count 303 T/CUMM (130-400); Red Cell Distribution Width 20.2 % (9.3-17.3); White Blood Count 14.4 T/CUMM (4-12)
[2017-11-03 10:13] LABS: Alanine Aminotransferase 28 U/L (13-56); Albumin 3.2 G/DL (3.4-5.0); Alkaline Phosphatase 72 U/L (45-117); Aspartate Amino Transferase 12 U/L (0-37); Bilirubin,Total < 0.39 MG/DL (0.2-1.0); Blood Urea Nitrogen 12 MG/DL (7-18); Calcium 8.7 MG/DL (8.5-10.1); Glucose 128 MG/DL (74-106); Osmolality,Calculated 274.8 MOS/KG (273-304); Potassium 3.5 MMOL/L (3.5-5.1); Sodium 137 MMOL/L (136-145); Total Protein 6.1 G/DL (6.4-8.3)
[2017-11-03 12:47] LABS: Hypochromasia 2+; Macrocytosis 1+; Microcytosis 1+
[2017-11-03] MEDS: LEVOFLOXACIN 500 MG TABLET PO SCH (15:41)
[2017-11-03] MEDS: traZODone 50 MG TABLET PO PRN (20:58)
[2017-11-04] MEDS: ALBUTEROL/IPRATROPIUM 3 ML NEB RESP TX SCH ×4 (00:06→20:24)
[2017-11-04] MEDS: DORNASE ALFA 2.5 MG/2.5 ML VIAL RESP TX SCH ×2 (07:43→20:24)
[2017-11-04] MEDS: LEVOFLOXACIN 500 MG TABLET PO SCH (09:16)
[2017-11-04] MEDS: DILTIAZEM CD 240 MG CAPSULE PO SCH ×2 (09:16→21:11)
[2017-11-04] MEDS: LISINOPRIL 5 MG TABLET PO SCH ×2 (09:16→21:10)
[2017-11-04] MEDS: TRIAMTERENE/HCTZ 37.5-25 MG TABLET PO SCH (09:16)
[2017-11-04] MEDS: CARVEDILOL 3.125 MG TABLET PO SCH ×2 (09:16→16:32)
[2017-11-04] MEDS: FERROUS SULFATE 325 MG TABLET PO SCH ×2 (09:16→21:10)
[2017-11-04] MEDS: predniSONE 20 MG TABLET PO SCH (09:16)
[2017-11-04] MEDS: POTASSIUM CHLORIDE 20 MEQ TABLET PO SCH (09:16)
[2017-11-04] MEDS: IBUPROFEN 600 MG TABLET PO PRN (16:33)
[2017-11-04] MEDS: traZODone 50 MG TABLET PO PRN (21:10)
[2017-11-05] MEDS: ALBUTEROL/IPRATROPIUM 3 ML NEB RESP TX SCH ×3 (00:04→15:02)
[2017-11-05] MEDS: DORNASE ALFA 2.5 MG/2.5 ML VIAL RESP TX SCH (07:51)
[2017-11-05] MEDS: CARVEDILOL 3.125 MG TABLET PO SCH (08:52)
[2017-11-05] MEDS: SULFAMETHOX/TRIMETHOPRIM 800-160 MG TABLET PO SCH (08:52)
[2017-11-05] MEDS: DILTIAZEM CD 240 MG CAPSULE PO SCH (08:52)
[2017-11-05] MEDS: FERROUS SULFATE 325 MG TABLET PO SCH (08:53)
[2017-11-05] MEDS: POTASSIUM CHLORIDE 20 MEQ TABLET PO SCH (08:53)
[2017-11-05] MEDS: TRIAMTERENE/HCTZ 37.5-25 MG TABLET PO SCH (08:54)
[2017-11-05] MEDS: predniSONE 20 MG TABLET PO SCH (08:55)
[2017-11-05] MEDS: LISINOPRIL 5 MG TABLET PO SCH (08:56)
[2017-11-05] MEDS: CYCLOBENZAPRINE 10 MG TABLET PO PRN (08:56)
[2017-11-05 10:43] VITALS: BP 177/77
== END 2017-11-05 16:05 | disposition home health service (06) | DRG 202 ==
LOC: N.ED 19:50 → N.EDINP 10-25 00:11 → N.ICU 10-25 01:45 → N.5E 10-25 09:02

== ENCOUNTER 2017-11-14 20:03 | Inpatient (IN) ==
[2017-11-14] MEDS ORDERED: methylPREDNISolone SOD SUC 125 MG/2 ML VIAL IV STA (20:29)
[2017-11-14] MEDS ORDERED: RACEPINEPHRINE 0.5 ML NEB RESP TX STA (20:31)
[2017-11-14 20:38] LABS: Basophils % 0.1 % (0.0-0.8); Eosinophils % 0.1 % (0.00-10.9); Hematocrit 32.3 VOL% (35.7-47.0); Hemoglobin 9.4 GM/DL (12.0-16.0); Immature Granulocytes % 1.6 %; Immature Granulocytes Absolute 0.29 #; Lymphocytes # 0.6 10*3/uL (1.4-4.0); Lymphocytes % 3.2 % (21.3-54.2); Mean Corpuscular HGB Conc 29.1 GM/DL (32-36); Mean Corpuscular Hemoglobin 22 PG (27-34); Mean Corpuscular Volume 76.7 FL (87-102); Mean Platelet Volume 9.2 FL (9.6-12.0); Monocytes # 0.7 10*3/uL (0.11-0.8); Monocytes % 3.8 % (1.7-12.7); NRBC # 0.08 10*3/uL; Neutrophils % 91.2 % (38.7-73.9); Platelet Count 329 T/CUMM (130-400); Red Blood Count 4.21 MC/CUMM (3.8-5.5); Red Cell Distribution Width 21.7 % (9.3-17.3); White Blood Count 18.6 T/CUMM (4-12)
[2017-11-14] MEDS ORDERED: FUROSEMIDE 40 MG/4 ML VIAL IV STA (20:40)
[2017-11-14 21:07] LABS: Alanine Aminotransferase 37 U/L (13-56); Albumin 3.4 G/DL (3.4-5.0); Alkaline Phosphatase 79 U/L (45-117); Aspartate Amino Transferase 11 U/L (0-37); Bilirubin,Total < 0.39 MG/DL (0.2-1.0); Blood Urea Nitrogen 17 MG/DL (7-18); Calcium 8.7 MG/DL (8.5-10.1); Glucose 151 MG/DL (74-106); Osmolality,Calculated 279.7 MOS/KG (273-304); Potassium 4.2 MMOL/L (3.5-5.1); Sodium 138 MMOL/L (136-145); Total Protein 6.8 G/DL (6.4-8.3)
[2017-11-14 21:49] LABS: Lymphocytes 7 % (20-55); Nucleated Red Blood Cells 1 (0-5); Segmented Neutrophils 92 % (50-85); Total Cells Counted 100
[2017-11-14 21:50] LABS: Anisocytosis Slight; Hypochromasia Slight; Microcytosis Slight; Ovalocytes 1+; Platelet Estimate Normal; Polychromasia Few
[2017-11-14] MEDS ORDERED: ONDANSETRON 4 MG/2 ML VIAL IV PRN (23:27)
[2017-11-14] MEDS ORDERED: SODIUM CHLORIDE 0.9% 1,000 ML IV SCH (23:30)
[2017-11-14] MEDS ORDERED: ALBUTEROL 1.25 MG/3 ML NEB RESP TX PRN (23:33)
[2017-11-14] MEDS ORDERED: diphenhydrAMINE 50 MG/1 ML VIAL IV ONE (23:33)
[2017-11-15] MEDS: DORNASE ALFA 2.5 MG/2.5 ML VIAL RESP TX SCH ×3 (00:17→19:13)
[2017-11-15] MEDS: ALBUTEROL/IPRATROPIUM 3 ML NEB RESP TX SCH ×4 (00:17→19:11)
[2017-11-15] MEDS ORDERED: CYCLOBENZAPRINE 10 MG TABLET PO PRN (00:19)
[2017-11-15] MEDS: DILTIAZEM CD 120 MG CAPSULE PO SCH ×3 (00:55→21:25)
[2017-11-15] MEDS: FERROUS SULFATE 325 MG TABLET PO SCH ×3 (00:56→21:26)
[2017-11-15] MEDS: diphenhydrAMINE CAP 25 MG CAPSULE PO SCH ×5 (00:56→23:11)
[2017-11-15] MEDS: methylPREDNISolone SOD SUC 40 MG/1 ML VIAL IV SCH ×4 (03:36→21:26)
[2017-11-15 04:56] LABS: Apearance,Urine CLEAR (Clear); Bacteria,Urine Occasional /HPF (Few); Bilirubin,Urine Negative (Negative); Blood, Urine Small mg/dL (Negative); Glucose,Urine (UA) Negative (Negative); Ketones,Urine Negative (Negative); Nitrite,Urine Negative (Negative); Protein,Urine Negative; RBC,Urine 3 /HPF (0-4); Squamous Epithelial Cell,Urine Occasional /HPF (0-10); Urine Color Straw (Yellow); Urine Urobilinogen < 2.0 EU/DL (0.2-1.0); WBC,Urine 2 /HPF (0-6)
[2017-11-15 07:30] LABS: Basophils % 0.1 % (0.0-0.8); Hematocrit 30.5 VOL% (35.7-47.0); Hemoglobin 8.9 GM/DL (12.0-16.0); Immature Granulocytes Absolute 0.29 #; Lymphocytes # 0.6 10*3/uL (1.4-4.0); Lymphocytes % 4.2 % (21.3-54.2); Mean Corpuscular HGB Conc 29.2 GM/DL (32-36); Mean Corpuscular Hemoglobin 22 PG (27-34); Mean Corpuscular Volume 74.4 FL (87-102); Mean Platelet Volume 9.1 FL (9.6-12.0); Monocytes # 0.4 10*3/uL (0.11-0.8); Monocytes % 2.7 % (1.7-12.7); NRBC # 0.05 10*3/uL; Neutrophils # 13.1 10*3/uL (1.4-7.4); Platelet Count 325 T/CUMM (130-400); Red Cell Distribution Width 21.5 % (9.3-17.3); White Blood Count 14.4 T/CUMM (4-12)
[2017-11-15 07:57] LABS: Calcium 9.1 MG/DL (8.5-10.1); Osmolality,Calculated 280.5 MOS/KG (273-304); Potassium 3.9 MMOL/L (3.5-5.1)
[2017-11-15 07:58] LABS: Hypochromasia 2+; Lymphocytes 6 % (20-55); Microcytosis 1+; Nucleated Red Blood Cells 1 (0-5); Platelet Estimate Normal; Segmented Neutrophils 92 % (50-85); Total Cells Counted 100
[2017-11-15] MEDS: TRIAMTERENE/HCTZ 37.5-25 MG TABLET PO SCH (10:23)
[2017-11-15] MEDS: ENOXAPARIN 40 MG/0.4 ML SYRINGE SUBCUT SCH (10:23)
[2017-11-15] MEDS: POTASSIUM CHLORIDE 20 MEQ TABLET PO SCH (10:24)
[2017-11-15] MEDS: CARVEDILOL 3.125 MG TABLET PO SCH ×2 (10:24→16:15)
[2017-11-15] MEDS: PANTOPRAZOLE 40 MG TABLET PO SCH (10:24)
[2017-11-15] MEDS ORDERED: FLUCONAZOLE 200 MG TABLET PO ONE (15:39)
[2017-11-15] MEDS: LEVOFLOXACIN 500 MG TABLET PO SCH (16:14)
[2017-11-15] MEDS: NYSTATIN POWDER 15 GM BOTTLE TOP SCH (21:37)
[2017-11-16] MEDS: ALBUTEROL/IPRATROPIUM 3 ML NEB RESP TX SCH ×4 (00:44→20:33)
[2017-11-16] MEDS: methylPREDNISolone SOD SUC 40 MG/1 ML VIAL IV SCH ×4 (03:25→20:17)
[2017-11-16 06:08] LABS: Basophils % 0.1 % (0.0-0.8); Hematocrit 30.8 VOL% (35.7-47.0); Hemoglobin 9.1 GM/DL (12.0-16.0); Immature Granulocytes % 1.6 %; Immature Granulocytes Absolute 0.21 #; Lymphocytes # 0.5 10*3/uL (1.4-4.0); Lymphocytes % 3.7 % (21.3-54.2); Mean Corpuscular HGB Conc 29.5 GM/DL (32-36); Mean Corpuscular Hemoglobin 22 PG (27-34); Mean Corpuscular Volume 75.9 FL (87-102); Mean Platelet Volume 9.9 FL (9.6-12.0); Monocytes # 0.7 10*3/uL (0.11-0.8); NRBC # 0.05 10*3/uL; Neutrophils # 11.7 10*3/uL (1.4-7.4); Neutrophils % 89.6 % (38.7-73.9); Platelet Count 247 T/CUMM (130-400); Red Blood Count 4.06 MC/CUMM (3.8-5.5); Red Cell Distribution Width 21.2 % (9.3-17.3); White Blood Count 13.1 T/CUMM (4-12)
[2017-11-16] MEDS: diphenhydrAMINE CAP 25 MG CAPSULE PO SCH ×4 (06:13→23:57)
[2017-11-16 06:36] LABS: Calcium 9.2 MG/DL (8.5-10.1); Osmolality,Calculated 277.7 MOS/KG (273-304); Potassium 3.8 MMOL/L (3.5-5.1)
[2017-11-16 07:37] LABS: Band Neutrophils 4 % (0-10); Lymphocytes 18 % (20-55); Microcytosis 2+; Platelet Estimate Normal; Segmented Neutrophils 78 % (50-85); Total Cells Counted 100
[2017-11-16] MEDS: DORNASE ALFA 2.5 MG/2.5 ML VIAL RESP TX SCH ×2 (07:57→20:37)
[2017-11-16] MEDS: ENOXAPARIN 40 MG/0.4 ML SYRINGE SUBCUT SCH (09:22)
[2017-11-16] MEDS: DILTIAZEM CD 120 MG CAPSULE PO SCH ×2 (09:23→20:17)
[2017-11-16] MEDS: PANTOPRAZOLE 40 MG TABLET PO SCH (09:23)
[2017-11-16] MEDS: FERROUS SULFATE 325 MG TABLET PO SCH ×2 (09:23→20:17)
[2017-11-16] MEDS: TRIAMTERENE/HCTZ 37.5-25 MG TABLET PO SCH (09:24)
[2017-11-16] MEDS: CARVEDILOL 3.125 MG TABLET PO SCH ×2 (09:24→17:48)
[2017-11-16] MEDS: POTASSIUM CHLORIDE 20 MEQ TABLET PO SCH (09:24)
[2017-11-16] MEDS: LEVOFLOXACIN 500 MG TABLET PO SCH (09:26)
[2017-11-16] MEDS: NYSTATIN POWDER 15 GM BOTTLE TOP SCH ×2 (09:27→20:18)
[2017-11-16] MEDS ORDERED: SKIN HEALING OINT (AQUAPHOR) 50 GM TUBE TOP PRN (14:54)
[2017-11-17] MEDS: ALBUTEROL/IPRATROPIUM 3 ML NEB RESP TX SCH ×4 (01:06→20:32)
[2017-11-17] MEDS: methylPREDNISolone SOD SUC 40 MG/1 ML VIAL IV SCH ×4 (03:13→20:11)
[2017-11-17 03:29] LABS: Basophils % 0.1 % (0.0-0.8); Immature Granulocytes % 1.6 %; Immature Granulocytes Absolute 0.21 #; Lymphocytes # 0.4 10*3/uL (1.4-4.0); Lymphocytes % 3.4 % (21.3-54.2); Mean Corpuscular Hemoglobin 22 PG (27-34); Mean Corpuscular Volume 75.8 FL (87-102); Monocytes # 0.8 10*3/uL (0.11-0.8); Monocytes % 6.2 % (1.7-12.7); NRBC # 0.05 10*3/uL; Neutrophils # 11.4 10*3/uL (1.4-7.4); Neutrophils % 88.7 % (38.7-73.9); Platelet Count 301 T/CUMM (130-400); Red Blood Count 4.09 MC/CUMM (3.8-5.5); Red Cell Distribution Width 20.9 % (9.3-17.3); White Blood Count 12.8 T/CUMM (4-12)
[2017-11-17 03:50] LABS: Calcium 9.4 MG/DL (8.5-10.1)
[2017-11-17 04:35] LABS: Band Neutrophils 2 % (0-10); Lymphocytes 5 % (20-55); Segmented Neutrophils 87 % (50-85); Total Cells Counted 100
[2017-11-17 04:36] LABS: Anisocytosis 1+; Target Cells 1+
[2017-11-17 04:38] LABS: Hypochromasia Slight; Platelet Estimate Normal
[2017-11-17] MEDS: diphenhydrAMINE CAP 25 MG CAPSULE PO SCH ×3 (05:29→17:00)
[2017-11-17] MEDS: DORNASE ALFA 2.5 MG/2.5 ML VIAL RESP TX SCH ×2 (07:57→20:32)
[2017-11-17] MEDS: DILTIAZEM CD 120 MG CAPSULE PO SCH ×2 (08:55→20:12)
[2017-11-17] MEDS: PANTOPRAZOLE 40 MG TABLET PO SCH (08:55)
[2017-11-17] MEDS: LEVOFLOXACIN 500 MG TABLET PO SCH (08:55)
[2017-11-17] MEDS: TRIAMTERENE/HCTZ 37.5-25 MG TABLET PO SCH (08:55)
[2017-11-17] MEDS: CARVEDILOL 3.125 MG TABLET PO SCH ×2 (08:56→16:58)
[2017-11-17] MEDS: ENOXAPARIN 40 MG/0.4 ML SYRINGE SUBCUT SCH (08:56)
[2017-11-17] MEDS: NYSTATIN POWDER 15 GM BOTTLE TOP SCH ×2 (08:56→20:12)
[2017-11-17] MEDS: FERROUS SULFATE 325 MG TABLET PO SCH ×2 (08:56→20:12)
[2017-11-17] MEDS: POTASSIUM CHLORIDE 20 MEQ TABLET PO SCH (08:56)
[2017-11-18] MEDS: diphenhydrAMINE CAP 25 MG CAPSULE PO SCH ×5 (00:24→23:06)
[2017-11-18] MEDS: ALBUTEROL/IPRATROPIUM 3 ML NEB RESP TX SCH ×4 (01:10→19:01)
[2017-11-18] MEDS: methylPREDNISolone SOD SUC 40 MG/1 ML VIAL IV SCH ×4 (02:54→20:40)
[2017-11-18] MEDS: DORNASE ALFA 2.5 MG/2.5 ML VIAL RESP TX SCH ×2 (07:42→19:01)
[2017-11-18] MEDS: DILTIAZEM CD 120 MG CAPSULE PO SCH ×2 (08:39→20:40)
[2017-11-18] MEDS: POTASSIUM CHLORIDE 20 MEQ TABLET PO SCH (08:40)
[2017-11-18] MEDS: CARVEDILOL 3.125 MG TABLET PO SCH ×2 (08:40→18:19)
[2017-11-18] MEDS: PANTOPRAZOLE 40 MG TABLET PO SCH (08:40)
[2017-11-18] MEDS: TRIAMTERENE/HCTZ 37.5-25 MG TABLET PO SCH (08:40)
[2017-11-18] MEDS: FERROUS SULFATE 325 MG TABLET PO SCH ×2 (08:40→20:40)
[2017-11-18] MEDS: NYSTATIN POWDER 15 GM BOTTLE TOP SCH ×2 (08:41→20:40)
[2017-11-18] MEDS: ENOXAPARIN 40 MG/0.4 ML SYRINGE SUBCUT SCH (08:41)
[2017-11-18 09:22] LABS: Calcium 9.2 MG/DL (8.5-10.1); Osmolality,Calculated 276.8 MOS/KG (273-304); Potassium 3.7 MMOL/L (3.5-5.1)
[2017-11-18 10:18] LABS: Basophils % 0.1 % (0.0-0.8); Hematocrit 33.5 VOL% (35.7-47.0); Immature Granulocytes Absolute 0.25 #; Lymphocytes # 0.3 10*3/uL (1.4-4.0); Lymphocytes % 2.6 % (21.3-54.2); Mean Corpuscular HGB Conc 29.9 GM/DL (32-36); Mean Corpuscular Hemoglobin 23 PG (27-34); Mean Corpuscular Volume 75.5 FL (87-102); Mean Platelet Volume 9.5 FL (9.6-12.0); Monocytes # 0.9 10*3/uL (0.11-0.8); Monocytes % 6.9 % (1.7-12.7); NRBC # 0.05 10*3/uL; Neutrophils # 11.2 10*3/uL (1.4-7.4); Neutrophils % 88.4 % (38.7-73.9); Platelet Count 313 T/CUMM (130-400); Red Blood Count 4.44 MC/CUMM (3.8-5.5); Red Cell Distribution Width 21.2 % (9.3-17.3); White Blood Count 12.7 T/CUMM (4-12)
[2017-11-18] MEDS: LINEZOLID INJ 600 MG in PREMIX 1 EACH IV SCH ×2 (10:38→20:40)
[2017-11-18 10:39] LABS: Hypochromasia 1+; Lymphocytes 4 % (20-55); Metamyelocytes 1 %; Microcytosis 1+; Nucleated Red Blood Cells 1 (0-5); Segmented Neutrophils 93 % (50-85); Total Cells Counted 100
[2017-11-18 10:40] LABS: Ovalocytes Slight; Platelet Estimate Normal; Polychromasia Slight
[2017-11-18] MEDS ORDERED: FLUCONAZOLE 150 MG TABLET PO ONE (13:30)
[2017-11-19] MEDS: ALBUTEROL/IPRATROPIUM 3 ML NEB RESP TX SCH ×4 (00:36→19:55)
[2017-11-19] MEDS: methylPREDNISolone SOD SUC 40 MG/1 ML VIAL IV SCH ×2 (02:52→11:02)
[2017-11-19 05:21] LABS: Basophils % 0.1 % (0.0-0.8); Hematocrit 33.7 VOL% (35.7-47.0); Hemoglobin 9.9 GM/DL (12.0-16.0); Immature Granulocytes % 1.9 %; Immature Granulocytes Absolute 0.24 #; Lymphocytes # 0.4 10*3/uL (1.4-4.0); Lymphocytes % 2.8 % (21.3-54.2); Mean Corpuscular HGB Conc 29.4 GM/DL (32-36); Mean Corpuscular Hemoglobin 22 PG (27-34); Mean Corpuscular Volume 75.4 FL (87-102); Mean Platelet Volume 9.2 FL (9.6-12.0); Monocytes # 0.7 10*3/uL (0.11-0.8); Monocytes % 5.2 % (1.7-12.7); NRBC # 0.06 10*3/uL; Neutrophils # 11.5 10*3/uL (1.4-7.4); Platelet Count 305 T/CUMM (130-400); Red Blood Count 4.47 MC/CUMM (3.8-5.5); Red Cell Distribution Width 21.2 % (9.3-17.3); White Blood Count 12.8 T/CUMM (4-12)
[2017-11-19] MEDS: diphenhydrAMINE CAP 25 MG CAPSULE PO SCH ×3 (05:24→23:57)
[2017-11-19 05:55] LABS: Anisocytosis 1+; Lymphocytes 5 % (20-55); Nucleated Red Blood Cells 1 (0-5); Segmented Neutrophils 92 % (50-85); Total Cells Counted 100
[2017-11-19 05:56] LABS: Hypochromasia 1+; Ovalocytes Few; Platelet Estimate Normal
[2017-11-19] MEDS: DORNASE ALFA 2.5 MG/2.5 ML VIAL RESP TX SCH ×2 (07:58→19:55)
[2017-11-19] MEDS: DILTIAZEM CD 120 MG CAPSULE PO SCH ×2 (10:57→22:18)
[2017-11-19] MEDS: POTASSIUM CHLORIDE 20 MEQ TABLET PO SCH (10:57)
[2017-11-19] MEDS: TRIAMTERENE/HCTZ 37.5-25 MG TABLET PO SCH (10:59)
[2017-11-19] MEDS: FERROUS SULFATE 325 MG TABLET PO SCH ×2 (11:00→22:19)
[2017-11-19] MEDS: CARVEDILOL 3.125 MG TABLET PO SCH ×2 (11:00→17:51)
[2017-11-19] MEDS: ENOXAPARIN 40 MG/0.4 ML SYRINGE SUBCUT SCH (11:02)
[2017-11-19] MEDS: NYSTATIN POWDER 15 GM BOTTLE TOP SCH ×2 (11:02→22:19)
[2017-11-19] MEDS: LINEZOLID INJ 600 MG in PREMIX 1 EACH IV SCH ×2 (11:06→22:19)
[2017-11-19] MEDS: PANTOPRAZOLE 40 MG TABLET PO SCH (11:06)
[2017-11-19] MEDS: SKIN HEALING OINT (AQUAPHOR) 50 GM TUBE TOP SCH ×2 (14:32→22:19)
[2017-11-19] MEDS ORDERED: diphenhydrAMINE CAP 25 MG CAPSULE PO SCH (23:00)
[2017-11-20] MEDS: diphenhydrAMINE CAP 25 MG CAPSULE PO SCH ×3 (00:56→16:01)
[2017-11-20] MEDS: ALBUTEROL/IPRATROPIUM 3 ML NEB RESP TX SCH ×3 (01:17→13:35)
[2017-11-20 06:49] LABS: Basophils % 0.1 % (0.0-0.8); Eosinophils % 0.2 % (0.00-10.9); Hematocrit 34.5 VOL% (35.7-47.0); Hemoglobin 10.2 GM/DL (12.0-16.0); Immature Granulocytes % 1.8 %; Immature Granulocytes Absolute 0.23 #; Lymphocytes # 0.7 10*3/uL (1.4-4.0); Lymphocytes % 5.1 % (21.3-54.2); Mean Corpuscular HGB Conc 29.6 GM/DL (32-36); Mean Corpuscular Hemoglobin 22 PG (27-34); Mean Corpuscular Volume 74.8 FL (87-102); Mean Platelet Volume 9.1 FL (9.6-12.0); Monocytes # 0.9 10*3/uL (0.11-0.8); Monocytes % 7.2 % (1.7-12.7); NRBC # 0.05 10*3/uL; Neutrophils % 85.6 % (38.7-73.9); Platelet Count 297 T/CUMM (130-400); Red Blood Count 4.61 MC/CUMM (3.8-5.5); Red Cell Distribution Width 21.2 % (9.3-17.3); White Blood Count 12.9 T/CUMM (4-12)
[2017-11-20 07:27] LABS: Calcium 8.9 MG/DL (8.5-10.1); Osmolality,Calculated 273.1 MOS/KG (273-304); Potassium 3.8 MMOL/L (3.5-5.1)
[2017-11-20] MEDS: DORNASE ALFA 2.5 MG/2.5 ML VIAL RESP TX SCH (07:50)
[2017-11-20] MEDS: FERROUS SULFATE 325 MG TABLET PO SCH (08:55)
[2017-11-20] MEDS: POTASSIUM CHLORIDE 20 MEQ TABLET PO SCH (08:55)
[2017-11-20] MEDS: TRIAMTERENE/HCTZ 37.5-25 MG TABLET PO SCH (08:55)
[2017-11-20] MEDS: CARVEDILOL 3.125 MG TABLET PO SCH (08:55)
[2017-11-20] MEDS: PANTOPRAZOLE 40 MG TABLET PO SCH (08:56)
[2017-11-20] MEDS: DILTIAZEM CD 120 MG CAPSULE PO SCH (08:56)
[2017-11-20] MEDS: ENOXAPARIN 40 MG/0.4 ML SYRINGE SUBCUT SCH (08:59)
[2017-11-20] MEDS: NYSTATIN POWDER 15 GM BOTTLE TOP SCH (09:00)
[2017-11-20] MEDS ORDERED: predniSONE 20 MG TABLET PO SCH (09:00)
[2017-11-20] MEDS: SKIN HEALING OINT (AQUAPHOR) 50 GM TUBE TOP SCH (09:01)
[2017-11-20] MEDS: LINEZOLID INJ 600 MG in PREMIX 1 EACH IV SCH (15:51)
[2017-11-20 16:48] VITALS: BP 153/84
== END 2017-11-20 19:00 | disposition home health service (06) | DRG 202 ==
LOC: N.ED 20:03 → SUATTDRO 22:39 → N.EDINP 22:39 → N.5E 23:04
PROVIDERS: ADMIT Internal Medicine; ATTEND Internal Medicine

== ENCOUNTER 2018-03-17 19:06 | Inpatient (IN) ==
[2018-03-17 19:38] LABS: Basophils % 0.2 % (0.0-0.8); Eosinophils % 0.2 % (0.00-10.9); Hematocrit 36.5 VOL% (35.7-47.0); Hemoglobin 10.8 GM/DL (12.0-16.0); Immature Granulocytes % 0.9 %; Immature Granulocytes Absolute 0.11 #; Lymphocytes # 1.4 10*3/uL (1.4-4.0); Lymphocytes % 10.8 % (21.3-54.2); Mean Corpuscular HGB Conc 29.6 GM/DL (32-36); Mean Corpuscular Hemoglobin 24 PG (27-34); Mean Corpuscular Volume 79.9 FL (87-102); Mean Platelet Volume 9.5 FL (9.6-12.0); Monocytes # 0.7 10*3/uL (0.11-0.8); Monocytes % 5.4 % (1.7-12.7); NRBC # 0.03 10*3/uL; Neutrophils # 10.5 10*3/uL (1.4-7.4); Neutrophils % 82.5 % (38.7-73.9); Platelet Count 334 T/CUMM (130-400); Red Blood Count 4.57 MC/CUMM (3.8-5.5); Red Cell Distribution Width 16.1 % (9.3-17.3); White Blood Count 12.7 T/CUMM (4-12)
[2018-03-17 19:41] LABS: PT Patient Result 10.7 SECS
[2018-03-17 19:57] LABS: Albumin 3.5 G/DL (3.4-5.0); Bilirubin,Total 0.4 MG/DL (0.2-1.0); Calcium 9.2 MG/DL (8.5-10.1); Osmolality,Calculated 272.7 MOS/KG (273-304); Potassium 3.4 MMOL/L (3.5-5.1); Total Protein 7.6 G/DL (6.4-8.3)
[2018-03-17 20:04] LABS: ABG Base Excess 4.7 MMOL/L (-2.5-2.5); ABG HCO3 28.6 MMOL/L (20-26); ABG Oxygen Saturation 96.4 % (95-100); ABG PCO2 41.7 MM HG (35-48); ABG PH 7.452 (7.35-7.45); ABG PO2 86.7 MM HG (80-95); ABG TCO2 26.1 MMOL/L (23-27)
[2018-03-17] MEDS ORDERED: ACETAMINOPHEN 325 MG TABLET PO PRN (22:28)
[2018-03-17] MEDS ORDERED: ONDANSETRON 4 MG/2 ML VIAL IV PRN (22:28)
[2018-03-18] MEDS: ALBUTEROL/IPRATROPIUM 3 ML NEB RESP TX SCH ×4 (00:32→19:05)
[2018-03-18] MEDS ORDERED: NITROGLYCERIN SL 0.4 MG TABLET SL ONE (01:05)
[2018-03-18] MEDS: IBUPROFEN 800 MG TABLET PO PRN (02:23)
[2018-03-18] MEDS: DILTIAZEM CD 240 MG CAPSULE PO SCH ×3 (02:24→21:23)
[2018-03-18] MEDS: CYCLOBENZAPRINE 10 MG TABLET PO SCH ×4 (02:39→21:24)
[2018-03-18] MEDS: POTASSIUM CHLORIDE 20 MEQ TABLET PO SCH ×3 (02:39→21:24)
[2018-03-18] MEDS: GABAPENTIN 100 MG CAPSULE PO SCH ×3 (02:39→21:23)
[2018-03-18 03:00] LABS: Basophils % 0.2 % (0.0-0.8); Eosinophils # 0.1 10*3/uL (0.0-0.87); Eosinophils % 0.6 % (0.00-10.9); Hematocrit 35.3 VOL% (35.7-47.0); Hemoglobin 10.5 GM/DL (12.0-16.0); Immature Granulocytes Absolute 0.13 #; Lymphocytes # 1.7 10*3/uL (1.4-4.0); Lymphocytes % 13.3 % (21.3-54.2); Mean Corpuscular HGB Conc 29.7 GM/DL (32-36); Mean Corpuscular Hemoglobin 23 PG (27-34); Mean Corpuscular Volume 77.8 FL (87-102); Mean Platelet Volume 9.9 FL (9.6-12.0); Monocytes # 0.9 10*3/uL (0.11-0.8); Monocytes % 6.8 % (1.7-12.7); NRBC # 0.04 10*3/uL; Neutrophils # 9.9 10*3/uL (1.4-7.4); Neutrophils % 78.1 % (38.7-73.9); Platelet Count 332 T/CUMM (130-400); Red Blood Count 4.54 MC/CUMM (3.8-5.5); Red Cell Distribution Width 16.4 % (9.3-17.3); White Blood Count 12.7 T/CUMM (4-12)
[2018-03-18 03:13] LABS: Albumin 3.3 G/DL (3.4-5.0); Bilirubin,Total 0.4 MG/DL (0.2-1.0); Calcium 9.5 MG/DL (8.5-10.1); Osmolality,Calculated 272.5 MOS/KG (273-304); Potassium 3.1 MMOL/L (3.5-5.1); Total Protein 7.2 G/DL (6.4-8.3)
[2018-03-18] MEDS: POLYETHYLENE GLYCOL POWDER 17 GM PACK PO SCH (08:32)
[2018-03-18] MEDS: PANTOPRAZOLE 40 MG TABLET PO SCH (08:32)
[2018-03-18] MEDS: predniSONE 5 MG TABLET PO SCH (08:32)
[2018-03-18] MEDS: FERROUS SULFATE 325 MG TABLET PO SCH ×2 (08:57→21:24)
[2018-03-18] MEDS ORDERED: AZITHROMYCIN 250 MG TABLET PO SCH (09:00)
[2018-03-18 11:01] LABS: PT Patient Result 10.7 SECS
[2018-03-18] MEDS: CEFEPIME 1,000 MG in SYRINGE 1 EACH IV SCH (12:38)
[2018-03-18] MEDS: NITROFURANTOIN MACROCRYSTALS 100 MG CAPSULE PO SCH (21:23)
[2018-03-19] MEDS: CEFEPIME 1,000 MG in SYRINGE 1 EACH IV SCH ×2 (00:50→13:08)
[2018-03-19 05:12] LABS: Basophils % 0.2 % (0.0-0.8); Eosinophils % 1.3 % (0.00-10.9); Hematocrit 34.5 VOL% (35.7-47.0); Immature Granulocytes % 1.1 %; Mean Corpuscular Hemoglobin 23 PG (27-34); Mean Corpuscular Volume 80.2 FL (87-102); Mean Platelet Volume 11.3 FL (9.6-12.0); Monocytes % 7.2 % (1.7-12.7); Neutrophils % 78.2 % (38.7-73.9); Platelet Count 260 T/CUMM (130-400); Red Cell Distribution Width 16.4 % (9.3-17.3); White Blood Count 12.1 T/CUMM (4-12)
[2018-03-19 05:13] LABS: Eosinophils # 0.2 10*3/uL (0.0-0.87); Immature Granulocytes Absolute 0.13 #; Lymphocytes # 1.5 10*3/uL (1.4-4.0); Monocytes # 0.9 10*3/uL (0.11-0.8); NRBC # 0.03 10*3/uL; Neutrophils # 9.4 10*3/uL (1.4-7.4)
[2018-03-19 05:18] LABS: Hypochromasia 1+
[2018-03-19 05:19] LABS: Osmolality,Calculated 274.7 MOS/KG (273-304); Platelet Estimate Adequate; Potassium 3.6 MMOL/L (3.5-5.1)
[2018-03-19] MEDS ORDERED: PROMETHAZINE 25 MG/1 ML VIAL IM ONE (07:00)
[2018-03-19] MEDS ORDERED: MIDAZOLAM 2 MG/2 ML VIAL ONE (07:03)
[2018-03-19] MEDS ORDERED: LIDOCAINE 1% 20 ML VIAL MISC INJ ONE (07:30)
[2018-03-19] MEDS ORDERED: LIDOCAINE 2% 20 ML VIAL RESP TX ONE (07:30)
[2018-03-19] MEDS ORDERED: MIDAZOLAM 2 MG/2 ML VIAL IV ONE (07:30)
[2018-03-19] MEDS: ALBUTEROL/IPRATROPIUM 3 ML NEB RESP TX SCH ×4 (08:01→20:17)
[2018-03-19] MEDS: FLUCONAZOLE INJ 200 MG in PREMIX 1 EACH IV SCH (09:00)
[2018-03-19] MEDS: IBUPROFEN 800 MG TABLET PO PRN ×2 (10:10→20:36)
[2018-03-19] MEDS: FERROUS SULFATE 325 MG TABLET PO SCH ×2 (11:09→20:36)
[2018-03-19] MEDS: PANTOPRAZOLE 40 MG TABLET PO SCH (11:09)
[2018-03-19] MEDS: DILTIAZEM CD 240 MG CAPSULE PO SCH ×2 (11:10→20:36)
[2018-03-19] MEDS: GABAPENTIN 100 MG CAPSULE PO SCH ×2 (11:10→20:37)
[2018-03-19] MEDS: CYCLOBENZAPRINE 10 MG TABLET PO SCH ×3 (11:10→20:37)
[2018-03-19] MEDS: predniSONE 5 MG TABLET PO SCH (11:12)
[2018-03-19] MEDS: POLYETHYLENE GLYCOL POWDER 17 GM PACK PO SCH (11:13)
[2018-03-19] MEDS: POTASSIUM CHLORIDE 20 MEQ TABLET PO SCH ×2 (11:14→20:37)
[2018-03-19] MEDS: NITROFURANTOIN MACROCRYSTALS 100 MG CAPSULE PO SCH (20:36)
[2018-03-20] MEDS: CEFEPIME 1,000 MG in SYRINGE 1 EACH IV SCH ×2 (00:23→13:25)
[2018-03-20] MEDS: ALBUTEROL/IPRATROPIUM 3 ML NEB RESP TX SCH ×4 (01:12→20:38)
[2018-03-20 04:22] LABS: Basophils % 0.2 % (0.0-0.8); Eosinophils % 0.3 % (0.00-10.9); Hematocrit 32.9 VOL% (35.7-47.0); Hemoglobin 9.7 GM/DL (12.0-16.0); Immature Granulocytes Absolute 0.11 #; Lymphocytes # 0.6 10*3/uL (1.4-4.0); Lymphocytes % 5.1 % (21.3-54.2); Mean Corpuscular HGB Conc 29.5 GM/DL (32-36); Mean Corpuscular Hemoglobin 24 PG (27-34); Mean Platelet Volume 10.2 FL (9.6-12.0); Monocytes # 0.4 10*3/uL (0.11-0.8); Monocytes % 3.9 % (1.7-12.7); Neutrophils % 89.5 % (38.7-73.9); Platelet Count 296 T/CUMM (130-400); Red Blood Count 4.11 MC/CUMM (3.8-5.5); Red Cell Distribution Width 16.2 % (9.3-17.3); White Blood Count 11.1 T/CUMM (4-12)
[2018-03-20 04:50] LABS: Calcium 9.2 MG/DL (8.5-10.1); Osmolality,Calculated 275.7 MOS/KG (273-304); Potassium 4.7 MMOL/L (3.5-5.1)
[2018-03-20] MEDS: FLUCONAZOLE INJ 200 MG in PREMIX 1 EACH IV SCH (08:22)
[2018-03-20] MEDS: PANTOPRAZOLE 40 MG TABLET PO SCH (08:23)
[2018-03-20] MEDS: CYCLOBENZAPRINE 10 MG TABLET PO SCH ×3 (08:23→20:47)
[2018-03-20] MEDS: POLYETHYLENE GLYCOL POWDER 17 GM PACK PO SCH (08:23)
[2018-03-20] MEDS: DILTIAZEM CD 240 MG CAPSULE PO SCH ×2 (08:23→20:47)
[2018-03-20] MEDS: GABAPENTIN 100 MG CAPSULE PO SCH ×2 (08:23→20:48)
[2018-03-20] MEDS: predniSONE 5 MG TABLET PO SCH (08:23)
[2018-03-20] MEDS: POTASSIUM CHLORIDE 20 MEQ TABLET PO SCH ×2 (08:23→20:48)
[2018-03-20] MEDS: FERROUS SULFATE 325 MG TABLET PO SCH ×2 (08:23→20:48)
[2018-03-20] MEDS: NITROFURANTOIN MACROCRYSTALS 100 MG CAPSULE PO SCH (20:47)
[2018-03-21] MEDS: CEFEPIME 1,000 MG in SYRINGE 1 EACH IV SCH ×2 (00:26→11:54)
[2018-03-21] MEDS: ALBUTEROL/IPRATROPIUM 3 ML NEB RESP TX SCH ×3 (01:59→12:33)
[2018-03-21 05:18] LABS: Calcium 9.2 MG/DL (8.5-10.1); Osmolality,Calculated 276.7 MOS/KG (273-304); Potassium 4.5 MMOL/L (3.5-5.1)
[2018-03-21 05:21] LABS: Basophils % 0.2 % (0.0-0.8); Eosinophils # 0.1 10*3/uL (0.0-0.87); Hematocrit 32.3 VOL% (35.7-47.0); Hemoglobin 9.5 GM/DL (12.0-16.0); Immature Granulocytes % 0.9 %; Lymphocytes # 0.9 10*3/uL (1.4-4.0); Lymphocytes % 7.4 % (21.3-54.2); Mean Corpuscular HGB Conc 29.4 GM/DL (32-36); Mean Corpuscular Hemoglobin 24 PG (27-34); Mean Corpuscular Volume 80.1 FL (87-102); Mean Platelet Volume 10.5 FL (9.6-12.0); Monocytes # 0.8 10*3/uL (0.11-0.8); Monocytes % 6.7 % (1.7-12.7); Neutrophils # 9.9 10*3/uL (1.4-7.4); Neutrophils % 83.8 % (38.7-73.9); Platelet Count 317 T/CUMM (130-400); Red Blood Count 4.03 MC/CUMM (3.8-5.5); Red Cell Distribution Width 16.4 % (9.3-17.3); White Blood Count 11.8 T/CUMM (4-12)
[2018-03-21 05:26] LABS: Hypochromasia 1+; Microcytosis 1+
[2018-03-21 05:27] LABS: Platelet Estimate Normal
[2018-03-21] MEDS: POTASSIUM CHLORIDE 20 MEQ TABLET PO SCH (09:26)
[2018-03-21] MEDS: CYCLOBENZAPRINE 10 MG TABLET PO SCH (09:26)
[2018-03-21] MEDS: GABAPENTIN 100 MG CAPSULE PO SCH (09:26)
[2018-03-21] MEDS: DILTIAZEM CD 240 MG CAPSULE PO SCH (09:26)
[2018-03-21] MEDS: FERROUS SULFATE 325 MG TABLET PO SCH (09:26)
[2018-03-21] MEDS: predniSONE 5 MG TABLET PO SCH (09:26)
[2018-03-21] MEDS: PANTOPRAZOLE 40 MG TABLET PO SCH (09:26)
[2018-03-21] MEDS: POLYETHYLENE GLYCOL POWDER 17 GM PACK PO SCH (09:27)
[2018-03-21 11:32] VITALS: BP 128/86
[2018-03-21] MEDS ORDERED: CLINDAMYCIN 300 MG CAPSULE PO SCH (14:00)
[2018-03-22 14:30] LABS: Myeloperoxidase Antibody < 0.2 U
== END 2018-03-21 14:42 | disposition home or self-care (01) | DRG 202 ==
LOC: N.EDINP 19:06 → N.ED 19:06 → N.TELEN 23:17
PROVIDERS: ADMIT Family Medicine; ATTEND Family Medicine

== ENCOUNTER 2018-09-13 06:09 | Inpatient (IN) ==
[2018-09-13] MEDS ORDERED: methylPREDNISolone SOD SUC 125 MG/2 ML VIAL IV STA (06:30)
[2018-09-13] MEDS: ALBUTEROL 2.5 MG/3 ML NEB RESP TX SCH ×3 (06:35→07:33)
[2018-09-13 06:48] LABS: Basophils % 0.2 % (0.0-0.8); Eosinophils # 0.1 10*3/uL (0.0-0.87); Eosinophils % 0.5 % (0.00-10.9); Hematocrit 29.1 VOL% (35.7-47.0); Hemoglobin 7.7 GM/DL (12.0-16.0); Immature Granulocytes % 1.2 %; Lymphocytes # 0.7 10*3/uL (1.4-4.0); Lymphocytes % 3.8 % (21.3-54.2); Mean Corpuscular HGB Conc 26.5 GM/DL (32-36); Mean Corpuscular Hemoglobin 20 PG (27-34); Mean Corpuscular Volume 74.2 FL (87-102); Mean Platelet Volume 9.4 FL (9.6-12.0); Monocytes # 0.6 10*3/uL (0.11-0.8); Monocytes % 3.5 % (1.7-12.7); NRBC # 0.04 10*3/uL; Neutrophils # 15.5 10*3/uL (1.4-7.4); Neutrophils % 90.8 % (38.7-73.9); Platelet Count 365 T/CUMM (130-400); Red Blood Count 3.92 MC/CUMM (3.8-5.5); Red Cell Distribution Width 18.2 % (9.3-17.3)
[2018-09-13 07:04] LABS: Hypochromasia 1+; Lymphocytes 4 % (20-55); Platelet Estimate Adequate; Segmented Neutrophils 94 % (50-85); Total Cells Counted 100
[2018-09-13 08:53] LABS: Calcium 8.8 MG/DL (8.5-10.1); Osmolality,Calculated 272.8 MOS/KG (273-304); Potassium 3.7 MMOL/L (3.5-5.1)
[2018-09-13] MEDS ORDERED: MORPHINE 4 MG/1 ML VIAL IV PRN (09:14)
[2018-09-13] MEDS ORDERED: ONDANSETRON 4 MG/2 ML VIAL IV PRN (09:14)
[2018-09-13] MEDS ORDERED: ALBUTEROL 2.5 MG/3 ML NEB RESP TX PRN (09:18)
[2018-09-13] MEDS ORDERED: IBUPROFEN 200 MG TABLET PO PRN (09:18)
[2018-09-13] MEDS ORDERED: SODIUM CHLORIDE 0.45% 1,000 ML IV SCH (09:30)
[2018-09-13] MEDS: LEVOFLOXACIN INJ 750 MG in PREMIX 1 EACH IV SCH (10:52)
[2018-09-13] MEDS: methylPREDNISolone SOD SUC 40 MG/1 ML VIAL IV SCH ×2 (10:53→18:14)
[2018-09-13] MEDS: DILTIAZEM CD 240 MG CAPSULE PO SCH ×2 (11:34→21:20)
[2018-09-13] MEDS: CARVEDILOL 3.125 MG TABLET PO SCH ×2 (11:34→18:14)
[2018-09-13] MEDS: ACETAMINOPHEN 325 MG TABLET PO PRN ×2 (12:00→21:26)
[2018-09-13] MEDS ORDERED: ALBUTEROL 2.5 MG/3 ML NEB RESP TX SCH (13:00)
[2018-09-13] MEDS ORDERED: FUROSEMIDE 40 MG/4 ML VIAL IV ONE (13:36)
[2018-09-13] MEDS: ALBUTEROL/IPRATROPIUM 3 ML NEB RESP TX SCH ×3 (14:20→23:00)
[2018-09-13] MEDS ORDERED: SODIUM CHLORIDE 0.9% 1,000 ML IV PRN (16:02)
[2018-09-13] MEDS: DOCUSATE SODIUM 100 MG CAPSULE PO SCH (21:20)
[2018-09-13] MEDS: FERROUS SULFATE 325 MG TABLET PO SCH (21:20)
[2018-09-13] MEDS: ENOXAPARIN 40 MG/0.4 ML SYRINGE SUBCUT SCH (21:22)
[2018-09-14] MEDS: methylPREDNISolone SOD SUC 40 MG/1 ML VIAL IV SCH ×3 (01:04→17:25)
[2018-09-14] MEDS: ALBUTEROL/IPRATROPIUM 3 ML NEB RESP TX SCH ×6 (03:00→23:00)
[2018-09-14] MEDS: ACETAMINOPHEN 325 MG TABLET PO PRN ×3 (04:57→20:38)
[2018-09-14 05:29] LABS: Risk Ratio 2.18; VLDL CHOLESTEROL 13.6 MG/DL
[2018-09-14 05:30] LABS: Calcium 9.1 MG/DL (8.5-10.1); Osmolality,Calculated 277.7 MOS/KG (273-304); Potassium 4.3 MMOL/L (3.5-5.1)
[2018-09-14 05:44] LABS: Basophils % 0.1 % (0.0-0.8); Hematocrit 31.1 VOL% (35.7-47.0); Immature Granulocytes % 1.1 %; Immature Granulocytes Absolute 0.15 #; Lymphocytes # 0.6 10*3/uL (1.4-4.0); Lymphocytes % 4.3 % (21.3-54.2); Mean Corpuscular HGB Conc 26.7 GM/DL (32-36); Mean Corpuscular Hemoglobin 20 PG (27-34); Mean Corpuscular Volume 74.6 FL (87-102); Mean Platelet Volume 9.9 FL (9.6-12.0); Monocytes # 0.4 10*3/uL (0.11-0.8); NRBC # 0.05 10*3/uL; Neutrophils # 12.8 10*3/uL (1.4-7.4); Neutrophils % 91.5 % (38.7-73.9); Platelet Count 419 T/CUMM (130-400); Red Blood Count 4.17 MC/CUMM (3.8-5.5); Red Cell Distribution Width 17.8 % (9.3-17.3)
[2018-09-14 05:45] LABS: Hemoglobin 8.3 GM/DL (12.0-16.0)
[2018-09-14 06:10] LABS: Hypochromasia Slight; Lymphocytes 3 % (20-55); Segmented Neutrophils 96 % (50-85); Total Cells Counted 100
[2018-09-14 06:11] LABS: Polychromasia Few
[2018-09-14] MEDS: LEVOFLOXACIN INJ 750 MG in PREMIX 1 EACH IV SCH (08:33)
[2018-09-14] MEDS: DOCUSATE SODIUM 100 MG CAPSULE PO SCH ×2 (08:34→20:38)
[2018-09-14] MEDS: FERROUS SULFATE 325 MG TABLET PO SCH ×2 (08:34→20:38)
[2018-09-14] MEDS: CARVEDILOL 3.125 MG TABLET PO SCH ×2 (08:34→17:25)
[2018-09-14] MEDS: POTASSIUM CHLORIDE 20 MEQ TABLET PO SCH (08:34)
[2018-09-14] MEDS: PANTOPRAZOLE 40 MG TABLET PO SCH (08:34)
[2018-09-14] MEDS: DILTIAZEM CD 240 MG CAPSULE PO SCH ×2 (08:36→20:38)
[2018-09-14] MEDS: ENOXAPARIN 40 MG/0.4 ML SYRINGE SUBCUT SCH (20:39)
[2018-09-15] MEDS: methylPREDNISolone SOD SUC 40 MG/1 ML VIAL IV SCH ×3 (01:12→17:26)
[2018-09-15] MEDS: ALBUTEROL/IPRATROPIUM 3 ML NEB RESP TX SCH ×6 (02:32→22:40)
[2018-09-15 03:55] LABS: Calcium 9.2 MG/DL (8.5-10.1); Potassium 4.4 MMOL/L (3.5-5.1)
[2018-09-15 04:07] LABS: Basophils % 0.1 % (0.0-0.8); Eosinophils % 0.1 % (0.00-10.9); Hematocrit 29.7 VOL% (35.7-47.0); Hemoglobin 7.8 GM/DL (12.0-16.0); Immature Granulocytes % 0.9 %; Immature Granulocytes Absolute 0.15 #; Lymphocytes # 0.5 10*3/uL (1.4-4.0); Lymphocytes % 2.7 % (21.3-54.2); Mean Corpuscular HGB Conc 26.3 GM/DL (32-36); Mean Corpuscular Hemoglobin 20 PG (27-34); Mean Platelet Volume 9.8 FL (9.6-12.0); Monocytes # 0.7 10*3/uL (0.11-0.8); Monocytes % 4.1 % (1.7-12.7); NRBC # 0.02 10*3/uL; Neutrophils # 15.5 10*3/uL (1.4-7.4); Neutrophils % 92.1 % (38.7-73.9); Platelet Count 384 T/CUMM (130-400); Red Blood Count 3.91 MC/CUMM (3.8-5.5); Red Cell Distribution Width 17.6 % (9.3-17.3); White Blood Count 16.8 T/CUMM (4-12)
[2018-09-15 04:40] LABS: Lymphocytes 3 % (20-55); Platelet Estimate Normal; Segmented Neutrophils 92 % (50-85); Total Cells Counted 100
[2018-09-15] MEDS: ACETAMINOPHEN 325 MG TABLET PO PRN (07:45)
[2018-09-15] MEDS: CARVEDILOL 3.125 MG TABLET PO SCH ×2 (07:45→17:26)
[2018-09-15] MEDS: hydrALAZINE 20 MG/1 ML VIAL IV PRN ×2 (07:46→17:32)
[2018-09-15] MEDS: DILTIAZEM CD 240 MG CAPSULE PO SCH ×3 (09:23→21:35)
[2018-09-15] MEDS: DOCUSATE SODIUM 100 MG CAPSULE PO SCH ×3 (09:25→21:35)
[2018-09-15] MEDS: PANTOPRAZOLE 40 MG TABLET PO SCH (09:25)
[2018-09-15] MEDS: POTASSIUM CHLORIDE 20 MEQ TABLET PO SCH (09:25)
[2018-09-15] MEDS: LEVOFLOXACIN INJ 750 MG in PREMIX 1 EACH IV SCH (09:25)
[2018-09-15] MEDS: FERROUS SULFATE 325 MG TABLET PO SCH ×2 (09:25→21:35)
[2018-09-15] MEDS: METOPROLOL TARTRATE 5 MG/5 ML VIAL IV PRN ×2 (14:10→21:38)
[2018-09-15] MEDS: IBUPROFEN 800 MG TABLET PO PRN (18:18)
[2018-09-15] MEDS: ENOXAPARIN 40 MG/0.4 ML SYRINGE SUBCUT SCH (21:36)
[2018-09-16] MEDS: ACETAMINOPHEN 325 MG TABLET PO PRN (00:46)
[2018-09-16] MEDS: methylPREDNISolone SOD SUC 40 MG/1 ML VIAL IV SCH ×3 (00:47→17:08)
[2018-09-16] MEDS: ALBUTEROL/IPRATROPIUM 3 ML NEB RESP TX SCH ×6 (02:36→23:56)
[2018-09-16 05:40] LABS: Osmolality,Calculated 277.8 MOS/KG (273-304); Potassium 4.2 MMOL/L (3.5-5.1)
[2018-09-16 05:41] LABS: Hematocrit 30.4 VOL% (35.7-47.0); Immature Granulocytes % 1.1 %; Immature Granulocytes Absolute 0.12 #; Lymphocytes # 0.3 10*3/uL (1.4-4.0); Lymphocytes % 2.9 % (21.3-54.2); Mean Corpuscular HGB Conc 26.6 GM/DL (32-36); Mean Corpuscular Hemoglobin 20 PG (27-34); Mean Corpuscular Volume 75.6 FL (87-102); Mean Platelet Volume 9.3 FL (9.6-12.0); Monocytes # 0.4 10*3/uL (0.11-0.8); Monocytes % 3.5 % (1.7-12.7); Neutrophils # 10.4 10*3/uL (1.4-7.4); Neutrophils % 92.5 % (38.7-73.9); Platelet Count 390 T/CUMM (130-400); Red Blood Count 4.02 MC/CUMM (3.8-5.5); Red Cell Distribution Width 17.8 % (9.3-17.3); White Blood Count 11.2 T/CUMM (4-12)
[2018-09-16 05:42] LABS: Hemoglobin 8.1 GM/DL (12.0-16.0)
[2018-09-16 05:51] LABS: Lymphocytes 7 % (20-55); Segmented Neutrophils 87 % (50-85); Total Cells Counted 100
[2018-09-16 05:52] LABS: Hypochromasia 1+; Platelet Estimate Normal
[2018-09-16 05:53] LABS: Microcytosis 1+
[2018-09-16] MEDS: hydrALAZINE 20 MG/1 ML VIAL IV PRN (06:16)
[2018-09-16] MEDS: IBUPROFEN 800 MG TABLET PO PRN (06:50)
[2018-09-16] MEDS: LEVOFLOXACIN INJ 750 MG in PREMIX 1 EACH IV SCH (08:20)
[2018-09-16] MEDS: DILTIAZEM CD 240 MG CAPSULE PO SCH ×2 (08:21→20:20)
[2018-09-16] MEDS: DOCUSATE SODIUM 100 MG CAPSULE PO SCH ×2 (08:21→20:20)
[2018-09-16] MEDS: POTASSIUM CHLORIDE 20 MEQ TABLET PO SCH (08:21)
[2018-09-16] MEDS: FERROUS SULFATE 325 MG TABLET PO SCH ×2 (08:21→20:20)
[2018-09-16] MEDS: CARVEDILOL 3.125 MG TABLET PO SCH ×2 (08:21→17:07)
[2018-09-16] MEDS: PANTOPRAZOLE 40 MG TABLET PO SCH (08:21)
[2018-09-16] MEDS: METOPROLOL TARTRATE 5 MG/5 ML VIAL IV PRN (10:37)
[2018-09-16] MEDS: ENOXAPARIN 40 MG/0.4 ML SYRINGE SUBCUT SCH (20:20)
[2018-09-17] MEDS: methylPREDNISolone SOD SUC 40 MG/1 ML VIAL IV SCH ×3 (00:32→17:05)
[2018-09-17 04:34] LABS: Calcium 8.9 MG/DL (8.5-10.1); Potassium 4.3 MMOL/L (3.5-5.1)
[2018-09-17] MEDS: ALBUTEROL/IPRATROPIUM 3 ML NEB RESP TX SCH ×6 (04:57→23:20)
[2018-09-17 05:42] LABS: Basophils % 0.1 % (0.0-0.8); Eosinophils % 0.3 % (0.00-10.9); Lymphocytes # 0.2 10*3/uL (1.4-4.0); Lymphocytes % 2.2 % (21.3-54.2); Mean Corpuscular HGB Conc 26.6 GM/DL (32-36); Mean Corpuscular Hemoglobin 20 PG (27-34); Mean Corpuscular Volume 74.6 FL (87-102); Mean Platelet Volume 11.3 FL (9.6-12.0); Monocytes # 0.4 10*3/uL (0.11-0.8); Monocytes % 3.8 % (1.7-12.7); NRBC # 0.06 10*3/uL; Neutrophils # 9.6 10*3/uL (1.4-7.4); Neutrophils % 92.6 % (38.7-73.9); Red Blood Count 4.29 MC/CUMM (3.8-5.5); Red Cell Distribution Width 17.9 % (9.3-17.3); White Blood Count 10.3 T/CUMM (4-12)
[2018-09-17 05:46] LABS: Hemoglobin 8.5 GM/DL (12.0-16.0); Platelet Count 216 T/CUMM (130-400)
[2018-09-17 06:06] LABS: Hypochromasia 1+; Lymphocytes 5 % (20-55); Microcytosis Slight; Ovalocytes Slight; Platelet Estimate Adequate; Segmented Neutrophils 90 % (50-85); Total Cells Counted 100
[2018-09-17] MEDS: LEVOFLOXACIN INJ 750 MG in PREMIX 1 EACH IV SCH (08:20)
[2018-09-17] MEDS: DILTIAZEM CD 240 MG CAPSULE PO SCH ×2 (08:20→21:22)
[2018-09-17] MEDS: POTASSIUM CHLORIDE 20 MEQ TABLET PO SCH (08:21)
[2018-09-17] MEDS: PANTOPRAZOLE 40 MG TABLET PO SCH (08:21)
[2018-09-17] MEDS: CARVEDILOL 3.125 MG TABLET PO SCH ×2 (08:21→17:04)
[2018-09-17] MEDS: FERROUS SULFATE 325 MG TABLET PO SCH ×2 (08:21→21:22)
[2018-09-17] MEDS: DOCUSATE SODIUM 100 MG CAPSULE PO SCH ×2 (08:21→21:23)
[2018-09-17] MEDS: IBUPROFEN 800 MG TABLET PO PRN (08:25)
[2018-09-17] MEDS: METOPROLOL TARTRATE 5 MG/5 ML VIAL IV PRN (17:42)
[2018-09-17] MEDS: ENOXAPARIN 40 MG/0.4 ML SYRINGE SUBCUT SCH (21:23)
[2018-09-18] MEDS: ALBUTEROL/IPRATROPIUM 3 ML NEB RESP TX SCH ×6 (02:35→22:58)
[2018-09-18] MEDS: methylPREDNISolone SOD SUC 40 MG/1 ML VIAL IV SCH ×3 (03:08→21:38)
[2018-09-18 06:35] LABS: Calcium 8.6 MG/DL (8.5-10.1); Osmolality,Calculated 278.8 MOS/KG (273-304)
[2018-09-18 06:47] LABS: Basophils % 0.1 % (0.0-0.8); Hematocrit 31.7 VOL% (35.7-47.0); Hemoglobin 8.2 GM/DL (12.0-16.0); Immature Granulocytes Absolute 0.09 #; Lymphocytes # 0.2 10*3/uL (1.4-4.0); Lymphocytes % 2.5 % (21.3-54.2); Mean Corpuscular HGB Conc 25.9 GM/DL (32-36); Mean Corpuscular Hemoglobin 20 PG (27-34); Mean Corpuscular Volume 76.9 FL (87-102); Monocytes # 0.6 10*3/uL (0.11-0.8); Monocytes % 6.7 % (1.7-12.7); Neutrophils # 8.3 10*3/uL (1.4-7.4); Neutrophils % 89.7 % (38.7-73.9); Platelet Count 359 T/CUMM (130-400); Red Blood Count 4.12 MC/CUMM (3.8-5.5); Red Cell Distribution Width 17.6 % (9.3-17.3); White Blood Count 9.3 T/CUMM (4-12)
[2018-09-18 06:51] LABS: Hypochromasia 2+; Lymphocytes 3 % (20-55); Microcytosis Slight; Platelet Estimate Adequate; Segmented Neutrophils 93 % (50-85); Total Cells Counted 100
[2018-09-18] MEDS: DOCUSATE SODIUM 100 MG CAPSULE PO SCH ×2 (09:21→21:38)
[2018-09-18] MEDS: POTASSIUM CHLORIDE 20 MEQ TABLET PO SCH (09:21)
[2018-09-18] MEDS: LEVOFLOXACIN 750 MG TABLET PO SCH (09:22)
[2018-09-18] MEDS: CARVEDILOL 3.125 MG TABLET PO SCH ×2 (09:22→16:10)
[2018-09-18] MEDS: FERROUS SULFATE 325 MG TABLET PO SCH ×2 (09:23→21:37)
[2018-09-18] MEDS: PANTOPRAZOLE 40 MG TABLET PO SCH (09:23)
[2018-09-18] MEDS: DILTIAZEM CD 240 MG CAPSULE PO SCH ×2 (09:24→21:37)
[2018-09-18] MEDS: LINEZOLID 600 MG TABLET PO SCH (16:10)
[2018-09-18] MEDS: ENOXAPARIN 40 MG/0.4 ML SYRINGE SUBCUT SCH (21:38)
[2018-09-18] MEDS: IBUPROFEN 800 MG TABLET PO PRN (23:31)
[2018-09-19] MEDS: ALBUTEROL/IPRATROPIUM 3 ML NEB RESP TX SCH ×4 (03:53→14:33)
[2018-09-19 05:36] LABS: Calcium 8.4 MG/DL (8.5-10.1); Osmolality,Calculated 277.8 MOS/KG (273-304); Potassium 4.1 MMOL/L (3.5-5.1)
[2018-09-19 06:02] LABS: Basophils % 0.2 % (0.0-0.8); Hematocrit 32.1 VOL% (35.7-47.0); Hemoglobin 8.4 GM/DL (12.0-16.0); Immature Granulocytes % 1.3 %; Immature Granulocytes Absolute 0.14 #; Lymphocytes # 0.4 10*3/uL (1.4-4.0); Lymphocytes % 3.3 % (21.3-54.2); Mean Corpuscular HGB Conc 26.2 GM/DL (32-36); Mean Corpuscular Hemoglobin 20 PG (27-34); Mean Corpuscular Volume 76.6 FL (87-102); Monocytes # 0.6 10*3/uL (0.11-0.8); Monocytes % 5.5 % (1.7-12.7); Neutrophils # 9.8 10*3/uL (1.4-7.4); Neutrophils % 89.7 % (38.7-73.9); Platelet Count 339 T/CUMM (130-400); Red Blood Count 4.19 MC/CUMM (3.8-5.5); Red Cell Distribution Width 17.7 % (9.3-17.3); White Blood Count 10.9 T/CUMM (4-12)
[2018-09-19 06:08] LABS: Hypochromasia 2+; Lymphocytes 5 % (20-55); Platelet Estimate Normal; Segmented Neutrophils 89 % (50-85); Target Cells 2+; Total Cells Counted 100
[2018-09-19] MEDS: CARVEDILOL 3.125 MG TABLET PO SCH ×2 (09:06→17:48)
[2018-09-19] MEDS: POTASSIUM CHLORIDE 20 MEQ TABLET PO SCH (09:06)
[2018-09-19] MEDS: LEVOFLOXACIN 750 MG TABLET PO SCH (09:07)
[2018-09-19] MEDS: FERROUS SULFATE 325 MG TABLET PO SCH (09:07)
[2018-09-19] MEDS: LINEZOLID 600 MG TABLET PO SCH (09:08)
[2018-09-19] MEDS: methylPREDNISolone SOD SUC 40 MG/1 ML VIAL IV SCH (09:08)
[2018-09-19] MEDS: DOCUSATE SODIUM 100 MG CAPSULE PO SCH (09:08)
[2018-09-19] MEDS: DILTIAZEM CD 240 MG CAPSULE PO SCH (09:08)
[2018-09-19] MEDS: PANTOPRAZOLE 40 MG TABLET PO SCH (09:08)
[2018-09-19 16:11] VITALS: BP 148/87
== END 2018-09-19 18:38 | disposition home health service (06) | DRG 202 ==
LOC: EDUNIT# → EDBD → N.EDINP 06:09 → N.ED 06:09 → N.ICU 10:28 → N.2E 10:41 → N.ICU 11:53 → N.2E 09-17 18:26
PROVIDERS: ADMIT Family Medicine; ATTEND Family Medicine

== ENCOUNTER 2019-05-30 04:14 | Observation (INO) ==
[2019-05-30] MEDS ORDERED: ALBUTEROL 2.5 MG/3 ML NEB RESP TX STA (05:17)
[2019-05-30 06:08] LABS: Bilirubin,Total 0.4 MG/DL (0.2-1.0); Calcium 9.1 MG/DL (8.5-10.1); Osmolality,Calculated 275.4 MOS/KG (273-304); Total Protein 8.2 G/DL (6.4-8.3)
[2019-05-30 06:43] LABS: Basophils # 0.1 10*3/uL (0.0-0.2); Basophils % 0.4 % (0.0-0.8); Eosinophils # 0.1 10*3/uL (0.0-0.87); Eosinophils % 0.6 % (0.00-10.9); Hematocrit 32.3 VOL% (35.7-47.0); Immature Granulocytes % 0.7 %; Immature Granulocytes Absolute 0.12 #; Lymphocytes % 11.3 % (21.3-54.2); Mean Corpuscular HGB Conc 27.9 GM/DL (32-36); Mean Corpuscular Volume 73.7 FL (87-102); Mean Platelet Volume 9.7 FL (9.6-12.0); Monocytes % 5.7 % (1.7-12.7); NRBC # 0.03 10*3/uL; Neutrophils % 81.3 % (38.7-73.9); Platelet Count 448 T/CUMM (130-400); Red Blood Count 4.38 MC/CUMM (3.8-5.5); Red Cell Distribution Width 18.6 % (9.3-17.3)
[2019-05-30 06:57] LABS: Hypochromasia 2+; Microcytosis Slight; Platelet Estimate Adequate
[2019-05-30] MEDS ORDERED: methylPREDNISolone SOD SUC 125 MG/2 ML VIAL IV STA (08:35)
[2019-05-30] MEDS ORDERED: ONDANSETRON 4 MG/2 ML VIAL IV PRN (09:22)
[2019-05-30] MEDS ORDERED: ACETAMINOPHEN 325 MG TABLET PO PRN (09:22)
[2019-05-30] MEDS ORDERED: ALBUTEROL/IPRATROPIUM 3 ML NEB RESP TX PRN (13:30)
[2019-05-30] MEDS ORDERED: hydrALAZINE 20 MG/1 ML VIAL IV PRN (13:30)
[2019-05-30] MEDS: ALBUTEROL/IPRATROPIUM 3 ML NEB RESP TX SCH ×3 (14:50→19:41)
[2019-05-30 15:08] LABS: PT Patient Result 10.8 SECS (9.6-12.2)
[2019-05-30] MEDS: cefTRIAXone 1,000 MG in SYRINGE 1 EACH IV SCH (15:23)
[2019-05-30] MEDS: carvediloL 3.125 MG TABLET PO SCH (16:53)
[2019-05-30] MEDS: IBUPROFEN 800 MG TABLET PO PRN (18:32)
[2019-05-30] MEDS: DILTIAZEM CD 240 MG CAPSULE PO SCH (21:21)
[2019-05-30] MEDS: methylPREDNISolone SOD SUC 40 MG/1 ML VIAL IV SCH (21:21)
[2019-05-31] MEDS: ALBUTEROL/IPRATROPIUM 3 ML NEB RESP TX SCH ×7 (00:24→23:40)
[2019-05-31] MEDS: POTASSIUM CHLORIDE 20 MEQ TABLET PO SCH (09:07)
[2019-05-31] MEDS: DILTIAZEM CD 240 MG CAPSULE PO SCH ×2 (09:07→20:20)
[2019-05-31] MEDS: cefTRIAXone 1,000 MG in SYRINGE 1 EACH IV SCH (09:07)
[2019-05-31] MEDS: carvediloL 3.125 MG TABLET PO SCH ×2 (09:07→16:20)
[2019-05-31] MEDS: methylPREDNISolone SOD SUC 40 MG/1 ML VIAL IV SCH ×2 (09:07→20:50)
[2019-05-31] MEDS: IBUPROFEN 800 MG TABLET PO PRN (17:59)
[2019-06-01] MEDS: ALBUTEROL/IPRATROPIUM 3 ML NEB RESP TX SCH ×3 (02:45→11:03)
[2019-06-01] MEDS: methylPREDNISolone SOD SUC 40 MG/1 ML VIAL IV SCH (08:15)
[2019-06-01] MEDS: POTASSIUM CHLORIDE 20 MEQ TABLET PO SCH (08:15)
[2019-06-01] MEDS: DILTIAZEM CD 240 MG CAPSULE PO SCH (08:15)
[2019-06-01] MEDS: carvediloL 3.125 MG TABLET PO SCH (08:15)
[2019-06-01] MEDS: cefTRIAXone 1,000 MG in SYRINGE 1 EACH IV SCH (08:16)
[2019-06-01 12:14] VITALS: BP 133/92
[2019-06-01] MEDS: IBUPROFEN 800 MG TABLET PO PRN (12:32)
== END 2019-06-01 12:53 | disposition home or self-care (01) ==
LOC: N.ED 04:14 → N.EDINP 04:14 → N.2E 13:29
PROVIDERS: ADMIT Family Medicine; ATTEND Family Medicine

== ENCOUNTER 2019-12-27 12:53 | Inpatient (IN) ==
[2019-12-27] MEDS ORDERED: methylPREDNISolone SOD SUC 125 MG/2 ML VIAL IV STA (13:39)
[2019-12-27] MEDS ORDERED: ALBUTEROL NEB SOLN 5 MG/ML 20 ML/BOTTLE CONT NEB STA (13:40)
[2019-12-27 14:20] LABS: Basophils % 0.1 % (0.0-0.8); Eosinophils % 0.1 % (0.00-10.9); Hematocrit 28.5 VOL% (35.7-47.0); Immature Granulocytes % 1.3 %; Immature Granulocytes Absolute 0.16 #; Lymphocytes # 0.5 10*3/uL (1.4-4.0); Lymphocytes % 4.4 % (21.3-54.2); Mean Corpuscular HGB Conc 26.7 GM/DL (32-36); Mean Corpuscular Volume 71.8 FL (87-102); Mean Platelet Volume 9.3 FL (9.6-12.0); Monocytes % 3.5 % (1.7-12.7); NRBC # 0.08 10*3/uL; Neutrophils % 90.6 % (38.7-73.9); Platelet Count 303 T/CUMM (130-400); Red Blood Count 3.97 MC/CUMM (3.8-5.5); Red Cell Distribution Width 20.5 % (9.3-17.3); White Blood Count 12.1 T/CUMM (4-12)
[2019-12-27 14:21] LABS: Hemoglobin 7.6 GM/DL (12.0-16.0)
[2019-12-27 14:38] LABS: Band Neutrophils 3 % (0-10); Lymphocytes 6 % (20-55); Segmented Neutrophils 90 % (50-85); Total Cells Counted 100
[2019-12-27 14:39] LABS: Hypochromasia 1+; Microcytosis 2+; Platelet Estimate Normal; Polychromasia Slight
[2019-12-27 14:57] LABS: Calcium 8.5 MG/DL (8.5-10.1); Osmolality,Calculated 272.8 MOS/KG (273-304)
[2019-12-27] MEDS ORDERED: GLUCAGON 1 MG VIAL IM PRN (17:27)
[2019-12-27] MEDS ORDERED: ONDANSETRON 4 MG/2 ML VIAL IV PRN (17:27)
[2019-12-27] MEDS ORDERED: DEXTROSE 50% 25 GM/50 ML VIAL IV PRN (17:27)
[2019-12-27] MEDS: ACETAMINOPHEN 325 MG TABLET PO PRN (22:39)
[2019-12-28] MEDS ORDERED: hydrALAZINE 20 MG/1 ML VIAL IV PRN (01:07)
[2019-12-28 01:50] LABS: Apearance,Urine Slightly Hazy (Clear); Bilirubin,Urine Negative (Negative); Blood, Urine Moderate mg/dL (Negative); Glucose,Urine (UA) Negative (Negative); Ketones,Urine Negative (Negative); Mucus,Urine Occasional /LPF (Occasional); Nitrite,Urine Negative (Negative); Protein,Urine Negative; RBC,Urine 174 /HPF (0-4); Squamous Epithelial Cell,Urine Occasional /HPF (0-10); Urine Color Yellow (Yellow); Urine Specific Gravity 1.019 (1.001-1.035); Urine Urobilinogen < 2.0 EU/DL (0.2-1.0); WBC,Urine 36 /HPF (0-6)
[2019-12-28] MEDS: IPRATROPIUM 500 MCG/2.5 ML NEB RESP TX SCH ×2 (02:55→07:16)
[2019-12-28 04:16] LABS: Basophils % 0.1 % (0.0-0.8); Hematocrit 28.8 VOL% (35.7-47.0); Hemoglobin 7.7 GM/DL (12.0-16.0); Immature Granulocytes % 1.5 %; Immature Granulocytes Absolute 0.19 #; Lymphocytes # 0.4 10*3/uL (1.4-4.0); Lymphocytes % 3.5 % (21.3-54.2); Mean Corpuscular HGB Conc 26.7 GM/DL (32-36); Mean Corpuscular Volume 70.1 FL (87-102); Mean Platelet Volume 9.6 FL (9.6-12.0); Monocytes % 3.2 % (1.7-12.7); NRBC # 0.14 10*3/uL; Neutrophils % 91.7 % (38.7-73.9); Platelet Count 332 T/CUMM (130-400); Red Blood Count 4.11 MC/CUMM (3.8-5.5); Red Cell Distribution Width 20.2 % (9.3-17.3); White Blood Count 12.6 T/CUMM (4-12)
[2019-12-28 04:19] LABS: Albumin 3.3 G/DL (3.4-5.0); Bilirubin,Total 0.4 MG/DL (0.2-1.0); Osmolality,Calculated 278.5 MOS/KG (273-304); Risk Ratio 2.3; Total Protein 7.1 G/DL (6.4-8.3); VLDL CHOLESTEROL 13.4 MG/DL
[2019-12-28 04:57] LABS: Anisocytosis 2+; Hypochromasia 3+; Lymphocytes 2 % (20-55); Microcytosis 3+; Nucleated Red Blood Cells 4 (0-5); Platelet Estimate Normal; Segmented Neutrophils 97 % (50-85); Total Cells Counted 100
[2019-12-28 04:58] LABS: Polychromasia Few
[2019-12-28 05:00] LABS: Target Cells Few
[2019-12-28] MEDS: PANTOPRAZOLE 40 MG TABLET PO SCH (08:54)
[2019-12-28] MEDS ORDERED: methylPREDNISolone SOD SUC 40 MG/1 ML VIAL IV SCH (09:00)
[2019-12-28] MEDS ORDERED: ALBUTEROL 2.5 MG/3 ML NEB RESP TX PRN (09:36)
[2019-12-28 10:44] LABS: % Iron Saturation 4.1 % (18-50)
[2019-12-28] MEDS: predniSONE 20 MG TABLET PO SCH (11:21)
[2019-12-28] MEDS: DILTIAZEM CD 240 MG CAPSULE PO SCH ×2 (11:21→20:00)
[2019-12-28] MEDS: carvediloL 3.125 MG TABLET PO SCH ×2 (11:21→20:01)
[2019-12-28] MEDS: CYANOCOBALAMIN 500 MCG TABLET PO SCH (11:21)
[2019-12-28] MEDS: POTASSIUM CHLORIDE 20 MEQ TABLET PO SCH (11:22)
[2019-12-28] MEDS ORDERED: ALBUTEROL/IPRATROPIUM 3 ML NEB RESP TX SCH (13:00)
[2019-12-28] MEDS: FERROUS SULFATE 325 MG TABLET PO SCH (17:07)
[2019-12-28] MEDS: ASCORBIC ACID 500 MG TABLET PO SCH (17:07)
[2019-12-28] MEDS: ALBUTEROL/IPRATROPIUM 3 ML NEB RESP TX SCH ×2 (19:03→23:10)
[2019-12-28] MEDS: ACETAMINOPHEN 325 MG TABLET PO PRN (20:01)
[2019-12-29] MEDS: ALBUTEROL/IPRATROPIUM 3 ML NEB RESP TX SCH ×6 (03:05→23:18)
[2019-12-29 05:44] LABS: Eosinophils % 0.1 % (0.00-10.9); Immature Granulocytes Absolute 0.12 #; Lymphocytes # 0.6 10*3/uL (1.4-4.0); Lymphocytes % 5.1 % (21.3-54.2); Mean Corpuscular HGB Conc 26.2 GM/DL (32-36); Mean Corpuscular Volume 71.9 FL (87-102); Monocytes % 8.2 % (1.7-12.7); NRBC # 0.07 10*3/uL; Neutrophils % 85.6 % (38.7-73.9); Platelet Count 303 T/CUMM (130-400); Red Blood Count 3.77 MC/CUMM (3.8-5.5); Red Cell Distribution Width 20.2 % (9.3-17.3); White Blood Count 12.1 T/CUMM (4-12)
[2019-12-29 06:14] LABS: Albumin 3.2 G/DL (3.4-5.0); Bilirubin,Total 0.5 MG/DL (0.2-1.0); Calcium 8.9 MG/DL (8.5-10.1); Osmolality,Calculated 280.4 MOS/KG (273-304); Total Protein 6.7 G/DL (6.4-8.3)
[2019-12-29 06:22] LABS: Hematocrit 26.9 VOL% (35.7-47.0); Hemoglobin 7.2 GM/DL (12.0-16.0)
[2019-12-29 06:23] LABS: Hypochromasia 1+; Microcytosis Slight; Platelet Estimate Adequate
[2019-12-29] MEDS: ASCORBIC ACID 500 MG TABLET PO SCH ×2 (09:46→17:46)
[2019-12-29] MEDS: FERROUS SULFATE 325 MG TABLET PO SCH ×2 (09:46→17:46)
[2019-12-29] MEDS: CYANOCOBALAMIN 500 MCG TABLET PO SCH (09:47)
[2019-12-29] MEDS: carvediloL 3.125 MG TABLET PO SCH ×2 (09:47→22:02)
[2019-12-29] MEDS: PANTOPRAZOLE 40 MG TABLET PO SCH (09:47)
[2019-12-29] MEDS: DILTIAZEM CD 240 MG CAPSULE PO SCH ×2 (09:47→22:01)
[2019-12-29] MEDS: POTASSIUM CHLORIDE 20 MEQ TABLET PO SCH (09:47)
[2019-12-29] MEDS: predniSONE 20 MG TABLET PO SCH (09:47)
[2019-12-29] MEDS: cefTRIAXone 1,000 MG in SYRINGE 1 EACH IV SCH (14:28)
[2019-12-30] MEDS: ALBUTEROL/IPRATROPIUM 3 ML NEB RESP TX SCH ×5 (03:15→20:00)
[2019-12-30 07:01] LABS: Albumin 3.1 G/DL (3.4-5.0); Bilirubin,Total 0.5 MG/DL (0.2-1.0); Calcium 8.4 MG/DL (8.5-10.1); Osmolality,Calculated 273.7 MOS/KG (273-304); Total Protein 6.7 G/DL (6.4-8.3)
[2019-12-30 07:04] LABS: Basophils % 0.1 % (0.0-0.8); Eosinophils # 0.1 10*3/uL (0.0-0.87); Eosinophils % 0.5 % (0.00-10.9); Hematocrit 26.5 VOL% (35.7-47.0); Immature Granulocytes % 1.1 %; Immature Granulocytes Absolute 0.12 #; Lymphocytes # 1.2 10*3/uL (1.4-4.0); Lymphocytes % 11.1 % (21.3-54.2); Mean Corpuscular HGB Conc 27.5 GM/DL (32-36); Mean Corpuscular Volume 70.3 FL (87-102); Mean Platelet Volume 9.8 FL (9.6-12.0); Monocytes % 8.7 % (1.7-12.7); NRBC # 0.08 10*3/uL; Neutrophils % 78.5 % (38.7-73.9); Platelet Count 318 T/CUMM (130-400); Red Blood Count 3.77 MC/CUMM (3.8-5.5); Red Cell Distribution Width 20.5 % (9.3-17.3); White Blood Count 11.1 T/CUMM (4-12)
[2019-12-30 07:05] LABS: Hemoglobin 7.3 GM/DL (12.0-16.0); Hypochromasia 2+; Microcytosis 1+; Ovalocytes Slight; Platelet Estimate Adequate
[2019-12-30] MEDS: CYANOCOBALAMIN 500 MCG TABLET PO SCH (08:52)
[2019-12-30] MEDS: predniSONE 20 MG TABLET PO SCH (08:52)
[2019-12-30] MEDS: FERROUS SULFATE 325 MG TABLET PO SCH ×2 (08:52→16:22)
[2019-12-30] MEDS: carvediloL 3.125 MG TABLET PO SCH ×2 (08:52→21:38)
[2019-12-30] MEDS: POTASSIUM CHLORIDE 20 MEQ TABLET PO SCH (08:52)
[2019-12-30] MEDS: PANTOPRAZOLE 40 MG TABLET PO SCH (08:52)
[2019-12-30] MEDS: DILTIAZEM CD 240 MG CAPSULE PO SCH ×2 (08:52→21:38)
[2019-12-30] MEDS: ASCORBIC ACID 500 MG TABLET PO SCH ×2 (08:52→16:22)
[2019-12-30] MEDS: cefTRIAXone 1,000 MG in SYRINGE 1 EACH IV SCH (12:56)
[2019-12-31] MEDS: ALBUTEROL/IPRATROPIUM 3 ML NEB RESP TX SCH ×5 (00:15→14:13)
[2019-12-31] MEDS: FERROUS SULFATE 325 MG TABLET PO SCH ×2 (09:31→17:31)
[2019-12-31] MEDS: PANTOPRAZOLE 40 MG TABLET PO SCH (09:31)
[2019-12-31] MEDS: POTASSIUM CHLORIDE 20 MEQ TABLET PO SCH (09:31)
[2019-12-31] MEDS: carvediloL 3.125 MG TABLET PO SCH (09:32)
[2019-12-31] MEDS: predniSONE 20 MG TABLET PO SCH (09:32)
[2019-12-31] MEDS: DILTIAZEM CD 240 MG CAPSULE PO SCH (09:32)
[2019-12-31] MEDS: ASCORBIC ACID 500 MG TABLET PO SCH ×2 (09:32→17:31)
[2019-12-31] MEDS: CYANOCOBALAMIN 500 MCG TABLET PO SCH (09:41)
[2019-12-31 12:04] VITALS: BP 122/83
[2019-12-31] MEDS: cefTRIAXone 1,000 MG in SYRINGE 1 EACH IV SCH (15:23)
== END 2019-12-31 17:49 | disposition home health service (06) | DRG 206 ==
LOC: EDBD → EDUNIT# → N.ED 12:53 → N.EDINP 17:25 → SUATTDRO 17:25 → N.EDINP 18:40 → N.3E 18:58
PROVIDERS: ADMIT Internal Medicine; ATTEND Internal Medicine Nephrology

== ENCOUNTER 2021-11-23 02:25 | Observation (INO) ==
[2021-11-23] MEDS ORDERED: ALBUTEROL/IPRATROPIUM 3 ML NEB RESP TX STA (02:45)
[2021-11-23] MEDS ORDERED: methylPREDNISolone SOD SUC 125 MG/2 ML VIAL IV STA (02:45)
[2021-11-23] MEDS ORDERED: ONDANSETRON 4 MG/2 ML VIAL IV STA (02:45)
[2021-11-23 03:17] LABS: Basophils % 0.3 % (0.0-0.8); Eosinophils # 0.1 10*3/uL (0.0-0.87); Eosinophils % 1.6 % (0.00-10.9); Hemoglobin 8.7 GM/DL (12.0-16.0); Immature Granulocytes % 0.5 %; Immature Granulocytes Absolute 0.04 #; Lymphocytes # 1.2 10*3/uL (1.4-4.0); Lymphocytes % 13.2 % (21.3-54.2); Mean Corpuscular HGB Conc 27.9 GM/DL (32-36); Mean Platelet Volume 9.6 FL (9.6-12.0); Monocytes % 11.8 % (1.7-12.7); NRBC # 0.02 10*3/uL; Neutrophils % 72.6 % (38.7-73.9); Platelet Count 323 T/CUMM (130-400); Red Blood Count 3.95 MC/CUMM (3.8-5.5); Red Cell Distribution Width 17.2 % (9.3-17.3); White Blood Count 8.7 T/CUMM (4-12)
[2021-11-23 03:18] LABS: Hematocrit 31.2 VOL% (35.7-47.0)
[2021-11-23 03:28] LABS: Albumin 3.3 G/DL (3.4-5.0); Bilirubin,Total 0.4 MG/DL (0.20-1.00); Osmolality,Calculated 279.4 MOS/KG (273-304); Potassium 3.2 MMOL/L (3.5-5.1); Total Protein 7.1 G/DL (6.4-8.2)
[2021-11-23] MEDS ORDERED: POTASSIUM CHLORIDE 20 MEQ TABLET PO STA (03:37)
[2021-11-23] MEDS ORDERED: MAGNESIUM SULF RIDER 2 GM/50 ML PREMIX IV STA (03:37)
[2021-11-23] MEDS ORDERED: MAGNESIUM SULF RIDER 2 GM/50 ML PREMIX IV PRN (04:15)
[2021-11-23] MEDS ORDERED: GLUCAGON 1 MG VIAL IM PRN (04:15)
[2021-11-23] MEDS ORDERED: ONDANSETRON 4 MG/2 ML VIAL IV PRN (04:15)
[2021-11-23] MEDS ORDERED: MAGNESIUM SULF RIDER 4 GM/100 ML PREMIX IV PRN (04:15)
[2021-11-23] MEDS ORDERED: ACETAMINOPHEN 325 MG TABLET PO PRN (04:15)
[2021-11-23] MEDS ORDERED: POTASSIUM CHLORIDE RIDER 10 MEQ/100 ML PREMIX IV PRN (04:15)
[2021-11-23] MEDS ORDERED: ALBUTEROL/IPRATROPIUM 3 ML NEB RESP TX PRN (04:34)
[2021-11-23] MEDS ORDERED: DEXTROSE 10% 250 ML BAG IV PRN (04:40)
[2021-11-23] MEDS ORDERED: ENOXAPARIN 40 MG/0.4 ML SYRINGE SUBCUT SCH (05:00)
[2021-11-23] MEDS ORDERED: methylPREDNISolone SOD SUC 40 MG/1 ML VIAL IV SCH ×2 (05:00→11:00)
[2021-11-23] MEDS: ALBUTEROL/IPRATROPIUM 3 ML NEB RESP TX SCH ×3 (07:40→20:24)
[2021-11-23] MEDS: FORMOTEROL 20 MCG/2 ML NEB RESP TX SCH ×2 (07:55→20:24)
[2021-11-23 08:56] LABS: Calcium 9.1 MG/DL (8.5-10.1); Osmolality,Calculated 274.8 MOS/KG (273-304); Potassium 3.5 MMOL/L (3.5-5.1)
[2021-11-23] MEDS ORDERED: guaiFENesin/DM ER 600-30 MG TABLET PO SCH (09:00)
[2021-11-23] MEDS ORDERED: PANTOPRAZOLE 40 MG TABLET PO SCH (09:00)
[2021-11-23] MEDS ORDERED: SODIUM CHLORIDE 0.9% 1,000 ML IV STA (09:01)
[2021-11-23] MEDS: POTASSIUM CHLORIDE 20 MEQ TABLET PO PRN ×3 (09:16→13:12)
[2021-11-23 13:50] VITALS: BP 133/85
== END 2021-11-23 13:51 | disposition home or self-care (01) ==
LOC: EDBD → EDUNIT# → N.EDINP 02:25 → N.ED 02:25 → N.EDINP 14:34
PROVIDERS: ADMIT Internal Medicine; ATTEND Internal Medicine

== ENCOUNTER 2022-01-19 23:28 | Inpatient (IN) ==
[2022-01-20] MEDS ORDERED: SODIUM CHLORIDE 0.9% 1,000 ML IV STA (00:09)
[2022-01-20 01:02] LABS: Basophils % 0.1 % (0.0-0.8); Eosinophils % 0.1 % (0.00-10.9); Hemoglobin 8.3 GM/DL (12.0-16.0); Immature Granulocytes % 1.3 %; Immature Granulocytes Absolute 0.18 #; Lymphocytes # 0.4 10*3/uL (1.4-4.0); Lymphocytes % 2.7 % (21.3-54.2); Mean Corpuscular HGB Conc 27.3 GM/DL (32-36); Mean Corpuscular Volume 73.6 FL (87-102); Mean Platelet Volume 8.8 FL (9.6-12.0); Monocytes # 0.5 10*3/uL (0.11-0.8); Monocytes % 3.5 % (1.7-12.7); NRBC # 0.06 10*3/uL; Neutrophils % 92.3 % (38.7-73.9); Platelet Count 402 T/CUMM (130-400); Red Blood Count 4.13 MC/CUMM (3.8-5.5); Red Cell Distribution Width 19.2 % (9.3-17.3); White Blood Count 13.9 T/CUMM (4-12)
[2022-01-20 01:03] LABS: Hematocrit 30.4 VOL% (35.7-47.0)
[2022-01-20 01:04] LABS: Calcium 9.5 MG/DL (8.5-10.1); Osmolality,Calculated 275.7 MOS/KG (273-304); Potassium 3.3 MMOL/L (3.5-5.1)
[2022-01-20 01:24] LABS: Lymphocytes 4 % (20-55); Nucleated Red Blood Cells 1 (0-5); Platelet Estimate Adequate; Stomatocytes 1+; Total Cells Counted 100
[2022-01-20 01:25] LABS: Hypochromia 1+; Microcytosis 1+
[2022-01-20] MEDS ORDERED: DEXAMETHASONE 4 MG/1 ML VIAL IV STA (02:21)
[2022-01-20] MEDS ORDERED: GLUCAGON 1 MG VIAL IM PRN ×2 (03:07)
[2022-01-20] MEDS ORDERED: DEXTROSE 50% 25 GM/50 ML VIAL IV PRN (03:07)
[2022-01-20] MEDS ORDERED: ZALEPLON 5 MG CAPSULE PO PRN (03:07)
[2022-01-20] MEDS ORDERED: MAGNESIUM SULF RIDER 2 GM/50 ML PREMIX IV ONE (03:16)
[2022-01-20] MEDS ORDERED: POTASSIUM CHLORIDE 20 MEQ TABLET PO STA (03:28)
[2022-01-20] MEDS ORDERED: DEXTROSE 10% 250 ML BAG IV PRN (03:32)
[2022-01-20] MEDS: methylPREDNISolone SOD SUC 40 MG/1 ML VIAL IV SCH ×3 (03:46→23:04)
[2022-01-20] MEDS ORDERED: POTASSIUM CHLORIDE 20 MEQ TABLET PO PRN (07:00)
[2022-01-20] MEDS: FORMOTEROL 20 MCG/2 ML NEB RESP TX SCH ×2 (07:11→18:58)
[2022-01-20] MEDS: ALBUTEROL/IPRATROPIUM 3 ML NEB RESP TX SCH ×3 (07:11→18:58)
[2022-01-20 07:59] LABS: Albumin 3.4 G/DL (3.4-5.0); Bilirubin,Total 0.4 MG/DL (0.20-1.00); Calcium 9.6 MG/DL (8.5-10.1); Osmolality,Calculated 269.1 MOS/KG (273-304); Potassium 3.8 MMOL/L (3.5-5.1); Total Protein 7.4 G/DL (6.4-8.2)
[2022-01-20 08:12] LABS: Basophils % 0.2 % (0.0-0.8); Hematocrit 31.9 VOL% (35.7-47.0); Immature Granulocytes % 1.4 %; Immature Granulocytes Absolute 0.19 #; Lymphocytes # 0.4 10*3/uL (1.4-4.0); Lymphocytes % 2.9 % (21.3-54.2); Mean Corpuscular HGB Conc 27.3 GM/DL (32-36); Mean Corpuscular Volume 73.8 FL (87-102); Monocytes # 0.1 10*3/uL (0.11-0.8); Monocytes % 1.1 % (1.7-12.7); NRBC # 0.06 10*3/uL; Neutrophils % 94.4 % (38.7-73.9); Platelet Count 437 T/CUMM (130-400); Red Blood Count 4.32 MC/CUMM (3.8-5.5); Red Cell Distribution Width 19.3 % (9.3-17.3); White Blood Count 13.3 T/CUMM (4-12)
[2022-01-20 08:15] LABS: Hemoglobin 8.7 GM/DL (12.0-16.0)
[2022-01-20 08:18] LABS: Band Neutrophils 1 % (0-10); Hypochromia 2+; Lymphocytes 1 % (20-55); Nucleated Red Blood Cells 1 (0-5); Ovalocytes Slight; Total Cells Counted 100
[2022-01-20 08:19] LABS: Microcytosis 1+; Polychromasia Slight
[2022-01-20 08:20] LABS: Platelet Estimate Increased
[2022-01-20] MEDS: ENOXAPARIN 40 MG/0.4 ML SYRINGE SUBCUT SCH (09:15)
[2022-01-20] MEDS: INSULIN REGULAR 100 UNIT/ML SUBCUT SCH ×4 (09:17→23:10)
[2022-01-20] MEDS: NYSTATIN POWDER 15 GM BOTTLE TOP SCH ×3 (09:19→23:10)
[2022-01-20] MEDS: ACETAMINOPHEN 325 MG TABLET PO PRN (12:48)
[2022-01-21] MEDS: ALBUTEROL/IPRATROPIUM 3 ML NEB RESP TX SCH ×4 (00:06→19:55)
[2022-01-21] MEDS: ACETAMINOPHEN 325 MG TABLET PO PRN (02:01)
[2022-01-21] MEDS: methylPREDNISolone SOD SUC 40 MG/1 ML VIAL IV SCH ×3 (04:25→20:30)
[2022-01-21 06:29] LABS: Calcium 9.1 MG/DL (8.5-10.1); Osmolality,Calculated 274.8 MOS/KG (273-304); Potassium 3.7 MMOL/L (3.5-5.1)
[2022-01-21] MEDS: FORMOTEROL 20 MCG/2 ML NEB RESP TX SCH ×2 (07:00→19:55)
[2022-01-21 07:04] LABS: Basophils % 0.1 % (0.0-0.8); Hematocrit 29.1 VOL% (35.7-47.0); Immature Granulocytes % 2.2 %; Immature Granulocytes Absolute 0.26 #; Lymphocytes # 0.4 10*3/uL (1.4-4.0); Mean Corpuscular HGB Conc 27.5 GM/DL (32-36); Mean Corpuscular Volume 74.6 FL (87-102); Mean Platelet Volume 8.7 FL (9.6-12.0); Monocytes # 0.3 10*3/uL (0.11-0.8); Monocytes % 2.8 % (1.7-12.7); NRBC # 0.05 10*3/uL; Neutrophils % 91.9 % (38.7-73.9); Platelet Count 371 T/CUMM (130-400); Red Cell Distribution Width 19.2 % (9.3-17.3); White Blood Count 11.6 T/CUMM (4-12)
[2022-01-21] MEDS: INSULIN REGULAR 100 UNIT/ML SUBCUT SCH ×4 (07:10→21:39)
[2022-01-21 07:20] LABS: Anisocytosis 1+; Band Neutrophils 1 % (0-10); Lymphocytes 4 % (20-55); Myelocytes 1 %; Nucleated Red Blood Cells 1 (0-5); Platelet Estimate Normal; Total Cells Counted 100
[2022-01-21 07:21] LABS: Hypochromia 1+; Polychromasia Slight; Stomatocytes Few; Tear Drop Cells Few
[2022-01-21] MEDS: ENOXAPARIN 40 MG/0.4 ML SYRINGE SUBCUT SCH (09:26)
[2022-01-21] MEDS ORDERED: ALBUTEROL 2.5 MG/3 ML NEB RESP TX PRN (10:14)
[2022-01-21] MEDS: NYSTATIN POWDER 15 GM BOTTLE TOP SCH ×3 (10:28→21:39)
[2022-01-21] MEDS: SODIUM CHLORIDE 0.9% 1,000 ML IV SCH (10:29)
[2022-01-21] MEDS: PANTOPRAZOLE 40 MG TABLET PO SCH (12:08)
[2022-01-21] MEDS: METOPROLOL SUCCINATE XL 50 MG TABLET PO SCH (12:08)
[2022-01-21 16:17] LABS: Bilirubin,Urine Negative (Negative); Blood, Urine Large mg/dL (Negative); Glucose,Urine (UA) Negative (Negative); Ketones,Urine Negative (Negative); Nitrite,Urine Negative (Negative); Protein,Urine 30 mg/dL (Negative); Urine Appearance Slightly Cloudy (Clear); Urine Color Yellow (Yellow); Urine Urobilinogen 0.2 eU/dL (<2.0)
[2022-01-21 16:20] LABS: Bacteria,Urine Occasional /HPF (Few); Mucus,Urine Few /LPF (Occasional); RBC,Urine 673 /HPF (0-4); Squamous Epithelial Cell,Urine Occasional /HPF (0-10)
[2022-01-22] MEDS: ALBUTEROL/IPRATROPIUM 3 ML NEB RESP TX SCH ×4 (00:47→19:58)
[2022-01-22] MEDS: methylPREDNISolone SOD SUC 40 MG/1 ML VIAL IV SCH ×3 (04:25→21:57)
[2022-01-22 06:24] LABS: Calcium 9.3 MG/DL (8.5-10.1); Osmolality,Calculated 277.7 MOS/KG (273-304); Potassium 4.1 MMOL/L (3.5-5.1)
[2022-01-22 06:50] LABS: Basophils % 0.1 % (0.0-0.8); Hematocrit 29.3 VOL% (35.7-47.0); Hemoglobin 7.9 GM/DL (12.0-16.0); Immature Granulocytes Absolute 0.22 #; Lymphocytes # 0.4 10*3/uL (1.4-4.0); Lymphocytes % 3.6 % (21.3-54.2); Mean Corpuscular Volume 74.6 FL (87-102); Mean Platelet Volume 8.8 FL (9.6-12.0); Monocytes # 0.8 10*3/uL (0.11-0.8); Monocytes % 7.5 % (1.7-12.7); NRBC # 0.06 10*3/uL; Neutrophils % 86.8 % (38.7-73.9); Platelet Count 371 T/CUMM (130-400); Red Blood Count 3.93 MC/CUMM (3.8-5.5); Red Cell Distribution Width 19.4 % (9.3-17.3); White Blood Count 11.3 T/CUMM (4-12)
[2022-01-22 07:06] LABS: Anisocytosis 1+; Band Neutrophils 4 % (0-10); Lymphocytes 4 % (20-55); Myelocytes 2 %; Nucleated Red Blood Cells 1 (0-5); Platelet Estimate Normal; Total Cells Counted 100
[2022-01-22 07:07] LABS: Stomatocytes Few
[2022-01-22] MEDS: FORMOTEROL 20 MCG/2 ML NEB RESP TX SCH ×2 (07:30→19:58)
[2022-01-22] MEDS: SODIUM CHLORIDE 0.9% 1,000 ML IV SCH (10:35)
[2022-01-22] MEDS: ENOXAPARIN 40 MG/0.4 ML SYRINGE SUBCUT SCH (10:38)
[2022-01-22] MEDS: METOPROLOL SUCCINATE XL 50 MG TABLET PO SCH (10:39)
[2022-01-22] MEDS: LACTOBACILLUS ACIDOPHILUS/BULGARICUS 1 PACKET PO SCH (10:39)
[2022-01-22] MEDS: PANTOPRAZOLE 40 MG TABLET PO SCH (10:40)
[2022-01-22] MEDS: CHOLECALCIFEROL 1,000 UNIT TABLET PO SCH (10:40)
[2022-01-22] MEDS: THEOPHYLLINE ER (24 HR) 400 MG CAPSULE PO SCH (10:41)
[2022-01-22 10:56] LABS: Folate 11.47 NG/ML (5.38-24.0)
[2022-01-22] MEDS: INSULIN REGULAR 100 UNIT/ML SUBCUT SCH ×4 (11:04→21:57)
[2022-01-22] MEDS: NYSTATIN POWDER 15 GM BOTTLE TOP SCH ×3 (11:05→21:57)
[2022-01-22] MEDS: CYANOCOBALAMIN 100 MCG TABLET PO SCH (11:06)
[2022-01-23] MEDS: ALBUTEROL/IPRATROPIUM 3 ML NEB RESP TX SCH ×2 (01:21→07:14)
[2022-01-23] MEDS: methylPREDNISolone SOD SUC 40 MG/1 ML VIAL IV SCH ×3 (04:53→11:45)
[2022-01-23] MEDS: SODIUM CHLORIDE 0.9% 1,000 ML IV SCH (04:53)
[2022-01-23 06:28] LABS: Calcium 9.2 MG/DL (8.5-10.1); Osmolality,Calculated 283.3 MOS/KG (273-304); Potassium 4.1 MMOL/L (3.5-5.1)
[2022-01-23 06:50] LABS: Basophils % 0.1 % (0.0-0.8); Eosinophils % 0.1 % (0.00-10.9); Hematocrit 28.8 VOL% (35.7-47.0); Hemoglobin 7.7 GM/DL (12.0-16.0); Immature Granulocytes % 2.3 %; Immature Granulocytes Absolute 0.24 #; Lymphocytes # 0.4 10*3/uL (1.4-4.0); Mean Corpuscular HGB Conc 26.7 GM/DL (32-36); Mean Platelet Volume 10.1 FL (9.6-12.0); Monocytes # 0.5 10*3/uL (0.11-0.8); Monocytes % 4.8 % (1.7-12.7); NRBC # 0.05 10*3/uL; Neutrophils % 88.7 % (38.7-73.9); Platelet Count 192 T/CUMM (130-400); Red Blood Count 3.79 MC/CUMM (3.8-5.5); Red Cell Distribution Width 19.3 % (9.3-17.3); White Blood Count 10.4 T/CUMM (4-12)
[2022-01-23 07:02] LABS: Hypochromia 1+; Lymphocytes 3 % (20-55); Microcytosis 1+; Nucleated Red Blood Cells 1 (0-5); Platelet Estimate Adequate; Total Cells Counted 100
[2022-01-23] MEDS: FORMOTEROL 20 MCG/2 ML NEB RESP TX SCH (07:14)
[2022-01-23] MEDS: PANTOPRAZOLE 40 MG TABLET PO SCH (09:00)
[2022-01-23] MEDS: METOPROLOL SUCCINATE XL 50 MG TABLET PO SCH (09:00)
[2022-01-23] MEDS: THEOPHYLLINE ER (24 HR) 400 MG CAPSULE PO SCH (09:00)
[2022-01-23] MEDS: CHOLECALCIFEROL 1,000 UNIT TABLET PO SCH (09:00)
[2022-01-23] MEDS: INSULIN REGULAR 100 UNIT/ML SUBCUT SCH ×2 (09:01→11:44)
[2022-01-23] MEDS: ENOXAPARIN 40 MG/0.4 ML SYRINGE SUBCUT SCH (09:01)
[2022-01-23] MEDS: CYANOCOBALAMIN 100 MCG TABLET PO SCH (09:05)
[2022-01-23] MEDS: NYSTATIN POWDER 15 GM BOTTLE TOP SCH (09:05)
[2022-01-23] MEDS: ACETAMINOPHEN 325 MG TABLET PO PRN (09:15)
[2022-01-23] MEDS: LACTOBACILLUS ACIDOPHILUS/BULGARICUS 1 PACKET PO SCH (09:15)
[2022-01-23 11:46] VITALS: BP 159/93
[2022-01-23] MEDS ORDERED: LEVALBUTEROL 1.25 MG/3 ML NEB RESP TX SCH (13:00)
[2022-01-23] MEDS ORDERED: METOPROLOL TARTRATE 50 MG TABLET PO SCH (21:00)
== END 2022-01-23 15:35 | disposition home health service (06) | DRG 189 ==
LOC: EDUNIT# → EDBD → N.ED 23:28 → N.TELEN 23:28 → SUATTDRO 01-20 03:07 → N.TELEN 01-20 04:59 → SUATTDRO 01-20 15:00
PROVIDERS: ADMIT Internal Medicine; ATTEND Internal Medicine Geriatric Medicine